=== PATIENT | female | born 1950 | race Caucasian/White ===

== ENCOUNTER 2018-02-03 09:05 | Day surgery (SDC) | payer MEDICARE, OTHER ==
[2018-02-02 11:47] LABS: Basophils # (auto) 0.1 uL; Basophils % (auto) 1.3 % (0.0-2.0); Eosinophils # (auto) 0.2 uL; Eosinophils % (auto) 3.1 % (0.0-7.0); Hematocrit 43.4 % (36.0-46.0); Hemoglobin 14.4 g/dL (12.2-16.2); Lymphocytes # (auto) 2.3 uL; Lymphocytes % (auto) 35.9 % (10.0-50.0); Mean Corpuscular Hemoglobin 28.7 pg (28.0-32.0); Mean Corpuscular Hgb Conc. 33.1 g/dL (32.0-36.0); Mean Corpuscular Volume 86.6 fL (80.0-100.0); Monocytes # (auto) 0.4 uL; Monocytes % (auto) 6.6 % (0.0-12.0); Neutrophils # (auto) 3.4 uL; Neutrophils % (auto) 53.1 % (37.0-80.0); Nucleated Red Blood Cells % 0.1 %; Platelet Count (auto) 253 10^3/uL (140-450); Red Blood Cells 5.01 10^6/uL (4.0-5.20); Red Cell Distribution Width 15.3 % (11.8-14.3); White Blood Cell 6.4 10^3/uL (4.4-10.8)
[2018-02-02 11:54] LABS: Urine Bacteria NONE SEEN /hpf (None Seen); Urine Blood Negative /uL (Negative); Urine WBC 2 /hpf (0 - 5)
[2018-02-02 12:01] LABS: INR 0.96 (0.9-1.15); Partial Thromboplastin Time 20.8 sec (22.64-33.71); Prothrombin Time 10.5 sec (9.37-12.3)
[2018-02-02 12:11] LABS: Albumin 3.8 g/dL (3.4-5.0); BUN/Creatinine Ratio 16.8; Bilirubin, Total 1.1 mg/dL (0.2-1.0); Calcium 8.6 mg/dL (8.5-10.1); Total Protein 8.3 g/dL (6.4-8.2)
[~2018-02-03] VITALS: Ht 170.2 cm; Wt 88.9 kg
[~2018-02-03 09:05] MED LIST: ALPR0.5T PO; ASPI81TA27 PO; ATOR10TA52 PO; BIOT2500 PO; CYCL1TAB18 PO; FERR-20 PO; LETR2.5T PO; LEVO75TA6 PO; LISI2.5T47 PO; MAGN250T8 PO; METF-370 PO; MULTTAB61 PO; THIA100T25 PO; TRAZ50TA2 PO
[2018-02-03] MEDS ORDERED: ceFAZolin 1GM/50ML 0 ML IV ONE (09:24)
[2018-02-03] MEDS ORDERED: LEVOFLOXACIN 500MG 100 ML IV ONE (09:25)
[2018-02-03] MEDS ORDERED: BUPIVACAINE 0.75% INJ 10ML MPV SDV IJ ONE (11:13)
[2018-02-03] MEDS ORDERED: fentaNYL CITRATE 100 MCG/2 ML VL ONE (11:13)
[2018-02-03] MEDS ORDERED: MIDAZOLAM HCL 1MG/1ML-2 ML VIAL ONE (11:13)
[2018-02-03] MEDS ORDERED: PROPOFOL 10 MG/ML 20 ML IV ONE (11:20)
[2018-02-03] MEDS ORDERED: diphenhdrAMINE HCL 50 MG/1 ML VL ONE (11:44)
[2018-02-03] MEDS ORDERED: ONDANSETRON HCL 4 MG/2 ML VIAL IV ONE (11:45)
[2018-02-03] MEDS ORDERED: ePHEDrine SULFATE 50 MG/ML AMP IV PRN (11:45)
[2018-02-03] MEDS ORDERED: hydrALAZINE HCL 20 MG/ML VL IV PRN (11:45)
[2018-02-03] MEDS ORDERED: fentaNYL CITRATE 100 MCG/2 ML VL IV ONE (12:00)
[2018-02-03 12:35] VITALS: BP 167/87
== END 2018-02-03 12:50 | disposition home or self-care (01) ==
LOC: SUR 09:05
PROVIDERS: ATTEND Podiatrist Foot & Ankle Surgery
DX: M62.472 Contracture of muscle, left ankle and foot (principal); Z88.1 Allergy status to other antibiotic agents; Z88.0 Allergy status to penicillin; Z88.2 Allergy status to sulfonamides; E66.9 Obesity, unspecified; Z88.4 Allergy status to anesthetic agent; Z91.041 Radiographic dye allergy status; E11.9 Type 2 diabetes mellitus without complications; Z85.3 Personal history of malignant neoplasm of breast; Z90.12 Acquired absence of left breast and nipple
CPT/HCPCS: 27685; 36415; 80053; 81001; 82962; 85025; 85610; 85730; J1200; J1956; J2250; J2704; J3010; J3490; J0690

== ENCOUNTER 2018-10-06 06:23 | Day surgery (SDC) | payer MEDICARE, OTHER ==
[2018-10-04 16:25] LABS: Basophils # (auto) 0 uL; Eosinophils # (auto) 0.1 uL; Eosinophils % (auto) 2.3 % (0.0-7.0); Hematocrit 45.2 % (36.0-46.0); Hemoglobin 15.3 g/dL (12.2-16.2); Lymphocytes % (auto) 40.3 % (10.0-50.0); Mean Corpuscular Hemoglobin 28.9 pg (28.0-32.0); Mean Corpuscular Hgb Conc. 33.8 g/dL (32.0-36.0); Mean Corpuscular Volume 85.6 fL (80.0-100.0); Monocytes # (auto) 0.3 uL; Monocytes % (auto) 7.1 % (0.0-12.0); Neutrophils # (auto) 2.4 uL; Neutrophils % (auto) 49.3 % (37.0-80.0); Nucleated Red Blood Cells % 0.1 %; Platelet Count (auto) 249 10^3/uL (140-450); Red Blood Cells 5.28 10^6/uL (4.0-5.20); Red Cell Distribution Width 14.5 % (11.8-14.3); White Blood Cell 4.9 10^3/uL (4.4-10.8)
[2018-10-04 16:39] LABS: INR 0.98 (0.9-1.15); Partial Thromboplastin Time 26.2 sec (23.78-33.04); Prothrombin Time 10.5 sec (9.27-12.13); Urine Bacteria NONE SEEN /hpf (None Seen); Urine Blood 1+ /uL (Negative); Urine WBC 129 /hpf (0 - 5)
[2018-10-04 18:13] LABS: Albumin 3.9 g/dL (3.4-5.0); BUN/Creatinine Ratio 18.5; Calcium 10.1 mg/dL (8.5-10.1); Potassium 3.9 mmol/L (3.5-5.1)
[2018-10-04 18:16] LABS: Bilirubin, Total 1.3 mg/dL (0.2-1.0); Total Protein 8.3 g/dL (6.4-8.2)
[~2018-10-06] VITALS: Ht 170.2 cm; Wt 92.5 kg
[~2018-10-06 06:23] MED LIST changes: -TRAZ50TA2 PO
[2018-10-06] MEDS ORDERED: NEOMYCIN-BACITRACIN-POLYM 15GM TOP OINT TOP ONE (07:00)
[2018-10-06] MEDS ORDERED: BUPIVACAINE 0.75% INJ 10ML MPV SDV IJ ONE (07:00)
[2018-10-06] MEDS ORDERED: LEVOFLOXACIN 500MG 100 ML IV ONE (07:09)
[2018-10-06] MEDS ORDERED: SODIUM CHLORIDE LOCK 10 ML ONE (07:11)
[2018-10-06] MEDS ORDERED: ONDANSETRON HCL 4 MG/2 ML VIAL ONE (07:11)
[2018-10-06] MEDS ORDERED: ROCURONIUM 10MG/ML 10ML VIAL IV ONE (07:11)
[2018-10-06] MEDS ORDERED: MIDAZOLAM HCL 1MG/1ML-2 ML VIAL ONE (07:11)
[2018-10-06] MEDS ORDERED: PROPOFOL 10 MG/ML 20 ML IV ONE (07:11)
[2018-10-06] MEDS ORDERED: fentaNYL CITRATE 100 MCG/2 ML VL ONE (07:11)
[2018-10-06] MEDS ORDERED: KETOROLAC TROMETH 30 MG/ML 1ML VIAL IV ONE (07:30)
[2018-10-06] MEDS ORDERED: ACCU-CHEK COMFORT CURVE STRIP VI ONE (07:30)
[2018-10-06] MEDS ORDERED: METOCLOPRAMIDE HCL 5MG/ml INJ 2ml VIAL IV ONE (07:30)
[2018-10-06] MEDS: HYDROmorphone HCL 2 MG/ML VL IV PRN ×2 (09:12→09:23)
[2018-10-06 09:44] VITALS: BP 139/69
== END 2018-10-06 10:05 | disposition home or self-care (01) ==
LOC: SUR 06:23
PROVIDERS: ATTEND Podiatrist Foot & Ankle Surgery
DX: M21.622 Bunionette of left foot (principal); M20.5X2 Other deformities of toe(s) (acquired), left foot; M77.8 Other enthesopathies, not elsewhere classified; I10 Essential (primary) hypertension; E66.9 Obesity, unspecified; E07.9 Disorder of thyroid, unspecified; E11.40 Type 2 diabetes mellitus with diabetic neuropathy, unspecified; Z98.890 Other specified postprocedural states; Z88.1 Allergy status to other antibiotic agents; Z91.041 Radiographic dye allergy status; Z85.3 Personal history of malignant neoplasm of breast; Z90.12 Acquired absence of left breast and nipple; Z88.4 Allergy status to anesthetic agent; Z88.0 Allergy status to penicillin; Z88.2 Allergy status to sulfonamides
CPT/HCPCS: 28110; 28285; 36415; 73630; 80053; 81001; 82962; 85025; 85610; 85730; 88304; 88311; C1713; C1769; J1170; J1956; J2250; J2405; J2704; J3010; J3490; L3260

== ENCOUNTER → 2019-12-07 | Day surgery (SDC) | payer MEDICARE, OTHER ==
[2019-12-05 15:24] LABS: Basophils # (auto) 0.1 uL; Basophils % (auto) 1.3 % (0.0-2.0); Eosinophils # (auto) 0.2 uL; Eosinophils % (auto) 3.7 % (0.0-7.0); Hematocrit 46.7 % (36.0-46.0); Hemoglobin 15.7 g/dL (12.2-16.2); Lymphocytes % (auto) 36.7 % (10.0-50.0); Mean Corpuscular Hemoglobin 29.1 pg (28.0-32.0); Mean Corpuscular Hgb Conc. 33.7 g/dL (32.0-36.0); Mean Corpuscular Volume 86.3 fL (80.0-100.0); Monocytes # (auto) 0.3 uL; Monocytes % (auto) 6.4 % (0.0-12.0); Neutrophils # (auto) 2.8 uL; Neutrophils % (auto) 51.9 % (37.0-80.0); Nucleated Red Blood Cells % 0.1 %; Platelet Count (auto) 253 10^3/uL (140-450); Red Blood Cells 5.41 10^6/uL (4.0-5.20); Red Cell Distribution Width 14.9 % (11.8-14.3); White Blood Cell 5.3 10^3/uL (4.4-10.8)
[2019-12-05 15:25] LABS: Urine Bacteria NONE SEEN /hpf (None Seen); Urine Blood Negative /uL (Negative); Urine Specific Gravity 1.021 (1.001-1.035); Urine WBC 1 /hpf (0 - 5)
[2019-12-05 15:45] LABS: INR 1.01 (0.9-1.15); Partial Thromboplastin Time 24.3 sec (23.64-32.05)
[2019-12-05 15:52] LABS: Albumin 3.8 g/dL (3.4-5.0); BUN/Creatinine Ratio 18.8; Calcium 9.2 mg/dL (8.5-10.1); Potassium 4.1 mmol/L (3.5-5.1)
[2019-12-05 16:02] LABS: Bilirubin, Total 0.9 mg/dL (0.2-1.0); Total Protein 8.5 g/dL (6.4-8.2)
[~2019-12-07] VITALS: Ht 170.2 cm; Wt 91.6 kg
[~2019-12-07] MED LIST changes: +ACCU-CHEK COMFORT CURVE STRIP VI ONE; -ALPR0.5T PO; +ASPI-404 PO; -ASPI81TA27 PO; -CYCL1TAB18 PO; +ESMOLOL HCL 10 ML IV ONE; +ETOMIDATE (2MG/ML) 20ML VIAL IV ONE; +HYDROmorphone HCL 2 MG/ML VL IV PRN; +InsuLIN REG 1unit/0.01ml Soln (100units/ml) ONE; +LEVOFLOXACIN 500MG 100 ML IV ONE; +LIDOCAINE 1% (LOCAL ANESTH.) PF 5ml SDV ONE; +METOCLOPRAMIDE HCL 5MG/ml INJ 2ml VIAL ONE; +MIDAZOLAM HCL 1MG/1ML-2 ML VIAL ONE; +NALOXONE HCL 0.4 MG/ML VIAL IV PRN; +NEOMYCIN-BACITRACIN-POLYM 15GM TOP OINT TOP ONE; +ONDANSETRON HCL 4 MG/2 ML VIAL ONE; +PROMETHAZINE HCL 25 MG/ML 1ML IV ONE; +PROMETHAZINE HCL 25 MG/ML 1ML ONE; +ROCURONIUM 10MG/ML 10ML VIAL IV ONE; +ROPIVACAINE 0.5% (5MG/ML) 20ML AMPULE IJ ONE; +SODIUM CHLORIDE LOCK 10 ML ONE; +SUCCINYLCHOLINE CHLORIDE 20 MG/ML 10ML VIAL IV ONE; -THIA100T25 PO; +ePHEDrine SULFATE 50 MG/ML AMP ONE; +fentaNYL CITRATE 100 MCG/2 ML VL ONE; +hydrALAZINE HCL 20 MG/ML VL IV PRN
[2019-12-07] MEDS: ONDANSETRON HCL 4 MG/2 ML VIAL IV PRN ×2 (09:35→10:09)
[2019-12-07 10:39] VITALS: BP 120/70
== END | disposition home or self-care (01) ==
LOC: SUR 06:23
PROVIDERS: ATTEND Podiatrist Foot & Ankle Surgery
DX: T85.848A Pain due to other internal prosthetic devices, implants and grafts, initial encounter (principal); E11.621 Type 2 diabetes mellitus with foot ulcer; L89.893 Pressure ulcer of other site, stage 3; K21.9 Gastro-esophageal reflux disease without esophagitis; I10 Essential (primary) hypertension; M19.90 Unspecified osteoarthritis, unspecified site; E11.9 Type 2 diabetes mellitus without complications; E03.9 Hypothyroidism, unspecified; E66.9 Obesity, unspecified; Z88.0 Allergy status to penicillin; Z88.1 Allergy status to other antibiotic agents; Z88.2 Allergy status to sulfonamides; Z88.8 Allergy status to other drugs, medicaments and biological substances; Z91.040 Latex allergy status; Z85.3 Personal history of malignant neoplasm of breast; Z90.12 Acquired absence of left breast and nipple; Z90.710 Acquired absence of both cervix and uterus; Z79.84 Long term (current) use of oral hypoglycemic drugs; Z79.899 Other long term (current) drug therapy; Z68.32 Body mass index [BMI] 32.0-32.9, adult
CPT/HCPCS: 20680; 28112; 36415; 80053; 81001; 82962; 85025; 85610; 85730; 88300; 88304; 88311; 93005; J0330; J1170; J1815; J1956; J2250; J2405; J2550; J2765; J2795; J3010; L3260

== ENCOUNTER → 2020-03-28 | Day surgery (SDC) | payer MEDICARE, OTHER ==
[2020-03-26 15:47] LABS: Basophils # (auto) 0.1 10 ^3/uL (0-0.2); Basophils % (auto) 1.1 % (0.0-2.0); Eosinophils # (auto) 0.2 10 ^3/uL (0-0.8); Eosinophils % (auto) 2.5 % (0.0-7.0); Hematocrit 46.7 % (36.0-46.0); Hemoglobin 15.5 g/dL (12.2-16.2); Lymphocytes # (auto) 2.3 10 ^3/uL (0.4-5.4); Lymphocytes % (auto) 38.5 % (10.0-50.0); Mean Corpuscular Hemoglobin 28.4 pg (28.0-32.0); Mean Corpuscular Hgb Conc. 33.1 g/dL (32.0-36.0); Mean Corpuscular Volume 85.7 fL (80.0-100.0); Monocytes # (auto) 0.4 10 ^3/uL (0-1.3); Monocytes % (auto) 6.3 % (0.0-12.0); Neutrophils # (auto) 3.1 10 ^3/uL (1.6-8.6); Neutrophils % (auto) 51.6 % (37.0-80.0); Nucleated Red Blood Cells % 0.1 %; Platelet Count (auto) 231 10^3/uL (140-450); Red Blood Cells 5.45 10^6/uL (4.0-5.20); Red Cell Distribution Width 15.3 % (11.8-14.3); White Blood Cell 6.1 10^3/uL (4.4-10.8)
[2020-03-26 16:02] LABS: INR 1.04 (0.9-1.15)
[2020-03-26 16:04] LABS: Albumin 3.8 g/dL (3.4-5.0); Calcium 9.4 mg/dL (8.5-10.1); Potassium 3.8 mmol/L (3.5-5.1)
[2020-03-26 16:07] LABS: Bilirubin, Total 1.2 mg/dL (0.2-1.0); Total Protein 8.2 g/dL (6.4-8.2)
[2020-03-26 16:38] LABS: Urine Bacteria NONE SEEN /hpf (None Seen); Urine Blood Negative /uL (Negative); Urine Mucus FEW (None Seen); Urine Specific Gravity 1.019 (1.001-1.035); Urine WBC 6 /hpf (0 - 5)
[~2020-03-28] VITALS: Ht 170.2 cm; Wt 88.0 kg
[~2020-03-28] MED LIST changes: -ACCU-CHEK COMFORT CURVE STRIP VI ONE; -BIOT2500 PO; +DexAMETHasone SOD PHOS 10MG/1ML VIAL INJ ONE; -ESMOLOL HCL 10 ML IV ONE; -ETOMIDATE (2MG/ML) 20ML VIAL IV ONE; -FERR-20 PO; -InsuLIN REG 1unit/0.01ml Soln (100units/ml) ONE; +LABETALOL HCL 5 MG/ML 4ML SYRINGE IV PRN; -LEVOFLOXACIN 500MG 100 ML IV ONE; -LIDOCAINE 1% (LOCAL ANESTH.) PF 5ml SDV ONE; +MEPERIDINE HCL (50 MG/ML) 1 ML VIAL ONE; -METOCLOPRAMIDE HCL 5MG/ml INJ 2ml VIAL ONE; +MIDAZOLAM HCL 1MG/1ML-2 ML VIAL IV PRN; +MORPHINE SULFATE 4 MG/ML SYR/VIAL IV PRN; -NALOXONE HCL 0.4 MG/ML VIAL IV PRN; +ONDANSETRON HCL 4 MG/2 ML VIAL IV PRN; -ONDANSETRON HCL 4 MG/2 ML VIAL ONE; -PROMETHAZINE HCL 25 MG/ML 1ML IV ONE; -PROMETHAZINE HCL 25 MG/ML 1ML ONE; +PROPOFOL 10 MG/ML 20 ML IV ONE; -ROCURONIUM 10MG/ML 10ML VIAL IV ONE; -SODIUM CHLORIDE LOCK 10 ML ONE; -SUCCINYLCHOLINE CHLORIDE 20 MG/ML 10ML VIAL IV ONE; +ePHEDrine SULFATE 50 MG/ML AMP IV PRN; -ePHEDrine SULFATE 50 MG/ML AMP ONE; -hydrALAZINE HCL 20 MG/ML VL IV PRN; +levoFLOXacin 500MG 100 ML IV ONE
[2020-03-28 10:25] VITALS: BP 142/84
== END | disposition home or self-care (01) ==
LOC: SUR 06:54
PROVIDERS: ATTEND Podiatrist Foot & Ankle Surgery
DX: M20.41 Other hammer toe(s) (acquired), right foot (principal); M25.774 Osteophyte, right foot; M89.9 Disorder of bone, unspecified; E66.01 Morbid (severe) obesity due to excess calories; E07.9 Disorder of thyroid, unspecified; Z88.0 Allergy status to penicillin; Z88.2 Allergy status to sulfonamides; Z88.8 Allergy status to other drugs, medicaments and biological substances; Z79.899 Other long term (current) drug therapy; Z98.890 Other specified postprocedural states; Z85.3 Personal history of malignant neoplasm of breast; Z68.31 Body mass index [BMI] 31.0-31.9, adult; Z91.041 Radiographic dye allergy status; Z11.59 Encounter for screening for other viral diseases
CPT/HCPCS: 28122; 28285; 36415; 80053; 81001; 82962; 85025; 85610; 85730; 88304; 88305; 88311; J1100; J1956; J2175; J2250; J2704; J2795; J3010; U0003

== ENCOUNTER → 2020-08-29 | Day surgery (SDC) | payer MEDICARE, OTHER ==
[2020-08-24 13:34] LABS: Urine Bacteria NONE SEEN /hpf (None Seen); Urine Blood Negative /uL (Negative); Urine Specific Gravity 1.018 (1.001-1.035); Urine WBC 19 /hpf (0 - 5)
[2020-08-24 13:35] LABS: Basophils # (auto) 0.1 10 ^3/uL (0-0.2); Basophils % (auto) 1.2 % (0.0-2.0); Eosinophils # (auto) 0.1 10 ^3/uL (0-0.8); Eosinophils % (auto) 2.4 % (0.0-7.0); Hematocrit 44.4 % (36.0-46.0); Hemoglobin 14.7 g/dL (12.2-16.2); Lymphocytes % (auto) 36.3 % (10.0-50.0); Mean Corpuscular Hemoglobin 28.5 pg (28.0-32.0); Mean Corpuscular Volume 86.3 fL (80.0-100.0); Monocytes # (auto) 0.3 10 ^3/uL (0-1.3); Neutrophils % (auto) 54.1 % (37.0-80.0); Nucleated Red Blood Cells % 0.1 %; Platelet Count (auto) 217 10^3/uL (140-450); Red Blood Cells 5.14 10^6/uL (4.0-5.20); Red Cell Distribution Width 15.1 % (11.8-14.3); White Blood Cell 5.6 10^3/uL (4.4-10.8)
[2020-08-24 13:45] LABS: INR 1.01 (0.9-1.15); Partial Thromboplastin Time 24.6 sec (23.0-31.2)
[2020-08-24 14:02] LABS: Potassium 3.8 mmol/L (3.5-5.1)
[2020-08-24 14:17] LABS: Albumin 3.9 g/dL (3.4-5.0); BUN/Creatinine Ratio 21.6; Bilirubin, Total 1.3 mg/dL (0.2-1.0); Calcium 9.4 mg/dL (8.5-10.1); Total Protein 7.9 g/dL (6.4-8.2)
[~2020-08-29] VITALS: Ht 170.2 cm; Wt 88.0 kg
[~2020-08-29] MED LIST changes: -ASPI-404 PO; +ASPI-543 PO; +CHLORHEXIDINE 4% TOPICAL soln 118ml TOP ONE; +CLINDAMYCIN 600MG IV 50 ML IV ONE; -DexAMETHasone SOD PHOS 10MG/1ML VIAL INJ ONE; +ETOMIDATE (2MG/ML) 20ML VIAL IV ONE; +GLYCOPYRROLATE 0.2 MG/ML 1ML VIAL ONE; -HYDROmorphone HCL 2 MG/ML VL IV PRN; -LABETALOL HCL 5 MG/ML 4ML SYRINGE IV PRN; -MEPERIDINE HCL (50 MG/ML) 1 ML VIAL ONE; +METOCLOPRAMIDE HCL 5MG/ml INJ 2ml VIAL ONE; -MIDAZOLAM HCL 1MG/1ML-2 ML VIAL IV PRN; -MORPHINE SULFATE 4 MG/ML SYR/VIAL IV PRN; +MULT-1018 PO; -MULTTAB61 PO; +NEOSTIGMINE 1 MG/ML INJ (10mg/10ML VIAL) ONE; +ONDANSETRON HCL 4 MG/2 ML VIAL ONE; -PROPOFOL 10 MG/ML 20 ML IV ONE; +SUCCINYLCHOLINE CHLORIDE 20 MG/ML 10ML VIAL IV ONE; -ePHEDrine SULFATE 50 MG/ML AMP IV PRN; -levoFLOXacin 500MG 100 ML IV ONE
[2020-08-29 10:31] VITALS: BP 124/73
== END | disposition home or self-care (01) ==
LOC: SUR 06:19
PROVIDERS: ATTEND Podiatrist Foot & Ankle Surgery
DX: M20.41 Other hammer toe(s) (acquired), right foot (principal); M19.90 Unspecified osteoarthritis, unspecified site; E66.9 Obesity, unspecified; E11.9 Type 2 diabetes mellitus without complications; Z20.828 Contact with and (suspected) exposure to other viral communicable diseases; Z85.3 Personal history of malignant neoplasm of breast; Z90.710 Acquired absence of both cervix and uterus; Z88.0 Allergy status to penicillin; Z79.82 Long term (current) use of aspirin; Z68.30 Body mass index [BMI] 30.0-30.9, adult; Z88.2 Allergy status to sulfonamides; Z88.8 Allergy status to other drugs, medicaments and biological substances; Z79.899 Other long term (current) drug therapy; Z98.890 Other specified postprocedural states; Z88.1 Allergy status to other antibiotic agents; Z91.041 Radiographic dye allergy status; Z90.10 Acquired absence of unspecified breast and nipple; Z53.8 Procedure and treatment not carried out for other reasons
CPT/HCPCS: 28122; 28285; 36415; 70360; 70490; 71250; 80053; 81001; 82962; 85025; 85610; 85730; J0330; J2250; J2405; J2765; J3010; J3490; U0003

== ENCOUNTER 2025-07-10 10:06 | Inpatient (IN) | payer MEDICARE, OTHER ==
[~2025-07-10] VITALS: Ht 167.6 cm; Wt 83.2 kg
[~2025-07-10 10:06] MED LIST changes: -CHLORHEXIDINE 4% TOPICAL soln 118ml TOP ONE; -CLINDAMYCIN 600MG IV 50 ML IV ONE; -ETOMIDATE (2MG/ML) 20ML VIAL IV ONE; -GLYCOPYRROLATE 0.2 MG/ML 1ML VIAL ONE; -METOCLOPRAMIDE HCL 5MG/ml INJ 2ml VIAL ONE; -MIDAZOLAM HCL 1MG/1ML-2 ML VIAL ONE; -NEOMYCIN-BACITRACIN-POLYM 15GM TOP OINT TOP ONE; -NEOSTIGMINE 1 MG/ML INJ (10mg/10ML VIAL) ONE; -ONDANSETRON HCL 4 MG/2 ML VIAL IV PRN; -ONDANSETRON HCL 4 MG/2 ML VIAL ONE; -ROPIVACAINE 0.5% (5MG/ML) 20ML AMPULE IJ ONE; -SUCCINYLCHOLINE CHLORIDE 20 MG/ML 10ML VIAL IV ONE; -fentaNYL CITRATE 100 MCG/2 ML VL ONE
[2025-07-10 10:38] VITALS: PULSE 71; RESP 16; O2SAT 96
--- NOTE | 2025-07-10 10:57 | ED.PDOC ---
General HPI Comments This is a 75 year-old female, with a PMHX of Kidney Stones, who presents to the ED with a chief complaint of RLQ abdominal pain with associated R sided back pain, nausea, decreased appetite, and yellow/brown urine as of 0500 this morning after urinating. Patient reports additional symptoms of chills that began X2 days ago over the weekend. Patient states RLQ abdominal pain is constant, radiating to back, with no associated relieving factors. Patient has no further complaints or other modifying factors at this time. Patient otherwise denies further symptoms of fever, vomiting, dysuria, or hematuria. Chief Complaint: Flank Pain Time Seen by MD: 10:39 Reviewed notes: Nurses Notes, Medications, Allergies Allergies: Coded Allergies: Erythromycin (Verified Allergy, Unknown, 08/24/20) Iodine (Verified Allergy, Unknown, 08/24/20) Lidocaine (Verified Allergy, Unknown, 08/24/20) Loracarbef (Verified Allergy, Unknown, 08/24/20) Penicillins (Verified Allergy, Unknown, 08/24/20) Sulfa Antibiotics (Verified Allergy, Unknown, 08/24/20) Home Meds Reported Medications Magnesium Oxide (Magnesium) 250 Mg Tab, 250 MG PO BID, TAB 02/02/18 Multiple Vitamin (Multivitamins) Tab, 1 TAB PO DAILY, #90 TAB 3 Refills 02/02/18 Aspirin (Aspir-Low) 81 Mg Tab, 81 MG PO DAILY for 30 Days, MG 02/02/18 Lisinopril (Lisinopril) 2.5 Mg Tab, 2.5 MG PO DAILY for 30 Days, MG 02/02/18 Letrozole (Femara) 2.5 Mg Tab, 1 TAB PO DAILY, #30 TAB 11 Refills 02/02/18 Levothyroxine Sodium (Levothyroxine Sodium) 75 Mcg Tab, 1 TAB PO DAILY, #30 TAB 5 Refills 02/02/18 Atorvastatin Calcium (ATORVASTATIN CALCIUM) 10 Mg Tab, 1 TAB PO DAILY, #30 TAB 5 Refills 02/02/18 Metformin Hydrochloride (Metformin Hcl) 500 Mg Tab, 500 MG PO TID for 30 Days, MG 02/02/18 Information Source: Patient Mode of Arrival: Ambulatory Severity: Moderate Timing: Hours Duration: Since onset Prehospital treatment: None Onset: Spontaneous History of: Kidney stone associated signs and symptoms: Abdominal Pain, Back Pain, Other (urine color changes and decreased appetite ) Past Medical History PAST MEDICAL HISTORY: Cancer (Breast), Kidney Stones Past Medical History (Other): DVT Surgical History: Hysterectomy Surgical History (Other): Mastectomy 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 Family History Family History: Reviewed,noncontributory to illness, No family hx of Cancer, No family hx of DM, No family hx of Heart skye, No family hx of HTN, No family hx ofKidney skye, No family hx of Liver skye, No family hx of Lung skye, No family hx of Stroke Social History Smoker: Non-Smoker Alcohol: Denies ETOH Use Drugs: Denies Drug Use Lives In: Home Constitutional: reports: chills, others (decreased appetite ); denies: diaphoresis, fatigue, fever, malaise, sweats, weakness EENTM: denies: blurred vision, double vision, ear bleeding, ear discharge, ear drainage, ear pain, ear ringing, eye pain, eye redness, hearing loss, mouth pain, mouth swelling, nasal discharge, nose bleeding, nose congestion, nose pain, photophobia, tearing, throat pain, throat swelling, voice changes, others Respiratory: denies: cough, hemoptysis, orthopnea, SOB at rest, shortness of breath, SOB with excertion, stridor, wheezing, others Cardiovascular: denies: chest pain, dizzy spells, diaphoresis, Dyspnea on exertion, edema, irregular heart beat, left arm pain, lightheadedness, palpitations, PND, syncope, others Gastrointestinal: reports: abdominal pain (RLQ ); denies: abdomen distended, blood streaked bowels, constipated, diarrhea, dysphagia, difficulty swallowing, hematemesis, melena, nausea, poor appetite, poor fluid intake, rectal bleeding, rectal pain, vomiting, others Genitourinary: reports: others (Urine color changes ); denies: abnormal vagina bleeding, burning, dyspareunia, dysuria, flank pain, frequency, hematuria, incontinence, pain, , vagina discharge, urgency Neurological: denies: dizziness, fainting, headache, left sided numbness, left sided weakness, numbness, paresthesia, pre-existing deficit, right sided numbness, right sided weakness, seizure, speech problems, tingling, tremors, weakness, others Musculoskeletal: reports: back pain; denies: gout, joint pain, joint swelling, muscle pain, muscle stiffness, neck pain, others Integumetry: denies: bruises, change in color, change in hair/nails, dryness, laceration, lesions, lumps, rash, wounds, others Allergic/Immunocompromised: denies: Difficulty Healing, Frequent Infections, Hives, Itching, others Hematologic/Lymphatic: denies: anemia, blood clots, easy bleeding, easy bruising, swollen glands, others Endocrine: denies: excessive hunger, excessive sweating, excessive thirst, excessive urination, flushing, intolerance to cold, intolerance to heat, unexplained weight gain, unexplained weight loss, others Psychiatric: denies: anxiety, bipolar disorder, depression, hopeless, panic disorder, schizophrenia, sleepless, suicidal, others All Other Systems: Reviewed and Negative Physical Exam General Appearance: Moderate Distress HEENT: Other (Pupils and face symmetric. Moist mucous membranes.) Neck: Full Range of Motion, Normal Inspection Respiratory: Lungs Clear, No Accessory Muscle Use, No Respiratory Distress, Normal Breath Sounds Cardiovascular: No Edema, No JVD, Regular Rate/Rhythm Breast Exam: Deferred Gastrointestinal: RLQ, Soft, Tenderness Genitalia: Deferred Pelvic: Deferred Rectal: Deferred Extremities: Normal inspection, Normal range of motion, Non-tender, No pedal edema Neurologic: Alert (Oriented x4), Normal Affect, Normal Mood, Other (Ambulatory) Cerebellar Function: NOT DONE Reflexes: NOT DONE Skin: Dry, Normal Color, Warm Lymphatic: NOT DONE Was a procedure done? Was a procedure done?: No Differential Diagnosis Kidney stone (Female): Aortic dissection, Appendicitis, Musculoskeletal pain, Ovarian torsion, Renal failure, Urinary obstruction Kidney stone (Male): N/A Penile/Scrotal: N/A Urinary Problem (Male): N/A Urinary Problem (Female): Pyelonephritis, UTI, Vaginitis X-Ray, Labs, Meds, VS Vital Signs Date Time Temp Pulse Resp B/P (MAP) Pulse Ox O2 Delivery O2 Flow Rate FiO2 07/10/25 11:57 66 16 138/62 07/10/25 11:29 97.7 64 16 136/61 (86) 99 97.7 07/10/25 11:26 64 16 136/61 07/10/25 10:38 71 16 96 Room Air* 0 21 07/10/25 10:09 97.7 71 16 131/60 (83) 96 97.7 07/10/25 10:09 97.7 71 16 131/60 96 97.7 Lab Test 07/10/25 10:47 07/10/25 10:33 Range/Units White Blood Count 9.5 4.4-10.8 10^3/uL Red Blood Count 5.17 4.0-5.20 10^6/uL Hemoglobin 14.9 12.2-16.2 g/dL Hematocrit 44.5 36.0-46.0 % Mean Corpuscular Volume 86.2 80.0-100.0 fL Mean Corpuscular Hemoglobin 28.9 28.0-32.0 pg Mean Corpuscular Hemoglobin Concent 33.5 32.0-36.0 g/dL Red Cell Distribution Width 14.9 H 11.8-14.3 % Platelet Count 320 140-450 10^3/uL Mean Platelet Volume 7.2 6.9-10.8 fL Neutrophils (%) (Auto) 78.4 37.0-80.0 % Lymphocytes (%) (Auto) 13.0 10.0-50.0 % Monocytes (%) (Auto) 7.7 0.0-12.0 % Eosinophils (%) (Auto) 0.4 0.0-7.0 % Basophils (%) (Auto) 0.5 0.0-2.0 % Neutrophils # (Auto) 7.4 1.6-8.6 10 ^3/uL Lymphocytes # (Auto) 1.2 0.4-5.4 10 ^3/uL Monocytes # (Auto) 0.7 0-1.3 10 ^3/uL Eosinophils # (Auto) 0 0-0.8 10 ^3/uL Basophils # (Auto) 0 0-0.2 10 ^3/uL Nucleated Red Blood Cells 0.1 % Sodium Level 135 L 136-145 mmol/L Potassium Level 3.9 3.5-5.1 mmol/L Chloride Level 100 98-107 mmol/L Carbon Dioxide Level 23 20-31 mmol/L Anion Gap 12 5-15 Blood Urea Nitrogen 26 H 9-23 mg/dL Creatinine 1.38 H 0.550-1.02 mg/dL Glomerular Filtration Rate Calc 40 >90 mL/min BUN/Creatinine Ratio 18.8 10.0-20.0 Serum Glucose 244 H 74-106 mg/dL Lactic Acid Level 1.0 0.4-2.0 mmol/L Calcium Level 10.2 8.7-10.4 mg/dL Urine Color Light-orange Yellow Urine Clarity Ex.turbid Clear Urine pH 5.5 5.0-9.0 Urine Specific [place] 1.017 1.001-1.035 Urine Protein 1+ H Negative Urine Ketones Negative Negative Urine Blood 3+ H Negative /uL Urine Nitrite Negative Negative Urine Bilirubin Negative Negative Urine Urobilinogen Normal Negative mg/dL Urine Leukocyte Esterase 3+ Negative /uL Urine RBC 394 0 - 4 /hpf Urine WBC Clumps Present None Seen /hpf Urine Microscopic WBC 3778 H 0-5 /HPF Urine Squamous Epithelial Cells Few <5 /hpf Urine Bacteria Few H None Seen /hpf Urine Mucus Few None Seen Urine Yeast (Budding) Moderate None Seen /hpf Urine Glucose 2+ H Normal mg/dL Current Medications Medications (Trade) Dose Ordered Sig/Bhavna Route Start Time Stop Time Status Last Admin Sodium Chloride 1,000 ml @ 1,000 mls/hr Q1H ONCE IV 07/10/25 10:45 07/10/25 11:44 DC 07/10/25 11:20 Ondansetron HCl (Zofran) 4 mg ONCE ONCE IV 07/10/25 10:45 07/10/25 10:46 DC 07/10/25 11:25 Morphine Sulfate 4 mg ONCE ONCE IV 07/10/25 10:45 07/10/25 10:46 DC 07/10/25 11:26 : 1950LOC: ERRM / BED: / AGE / SEX: 75 / F ADM STATUS: REG ER SERVICE 1037 ORDERING PHYSICIAN: MARCO FAM MD PROCEDURE(s): ABPL - CT AB PEL WO CON-NO ORAL OR IV REASON: RLQ pain radiating to R low back ORDER NUMBER(s): [id number], ACCESSION NUMBER(s): [id number] Indication: RLQ pain radiating to R low back Technique: CT axial images of the abdomen and pelvis are obtained without co ntrast. Coronal and sagittal reformats were obtained. Radiation Dose Information: CTDI volume is 11.39 mGy. Dose-length product is 3.09 mGy*cm Comparison: None FINDINGS: There is limited interpretation of the abdomen and pelvis without administration of intravenous contrast. Lung bases demonstrate no pleural effusion. Adrenal glands, spleen unremarkable in shape. Fatty infiltration pancreas. Liver unremarkable in shape. Cholelithiasis. The right kidney demonstrates moderate right hydroureteronephrosis secondary to a distal right ureteral calculi measuring 6 mm. Left kidney demonstrates no hydronephrosis, nephrolithiasis. Stomach is partially distended. Small bowel loops are normal in caliber. Colonic diverticula. Moderate volume stool in the colon. No secondary signs for appendicitis. Abdominal aortic atherosclerotic disease. Bladder contracted. No free pelvic fluid. No inguinal lymphadenopathy. Right femur intramedullary calvin. [id number] bilateral sacroiliac degenerative joint disease. Moderate to advanced thoracolumbar degenerative disc disease. Thoracolumbar levocurvature. Postsurgical changes of the anterior abdominal wall. IMPRESSION: Limited evaluation without contrast. Moderate right hydroureteronephrosis secondary to distal right ureteral calculus measuring 6 mm Atherosclerotic disease. Cholelithiasis. Colonic diverticular disease. Other findings as described. X-Ray, Labs, Meds, VS Comment 75-year-old female with a history of prediabetes, kidney stones, breast cancer in remission, and prior DVT complaining of right lower quadrant pain radiating to the right low back, associated with chills, nausea, decreased appetite and dark urine Vitals unremarkable Exam remarkable for right lower quadrant tenderness to palpation Rhythm strip independently interpreted by me: Sinus rhythm, rate 71, no ectopy. CT abdomen and pelvis IMPRESSION: Limited evaluation without contrast. Moderate right hydroureteronephrosis secondary to distal right ureteral calculus measuring 6 mm Atherosclerotic disease. Cholelithiasis. Colonic diverticular disease. Other findings as described. CBC, basic metabolic panel, UA and lactate reviewed and remarkable for abnormal UA consistent with UTI, sodium 135, BUN 26, creatinine 1.38, glucose 244 Patient treated with the following in the ED: 1 L 0.9 normal saline IV bolus, morphine 4 mg IV, Zofran 4 mg IV, Levaquin 500 mg IV, fentanyl 25 mcg IV On re-evaluation, patient states pain has not improved after IV morphine. Vitals were stable. Plan is to admit the patient for IV antibiotics, pain control and Urology evaluation. Images Reviewed?: Images reviewed and evaluated by me Time of 1ST Reevaluation: 11:32 Reevaluation 1ST: Unchanged Patient Education/Counseling: Diagnosis, Treatment, Need For Follow Up Family Education/Counseling: No Family Present Medical Screening: No EMC Exist At This Time SEPSIS Sepsis Screen Date sepsis recognized/suspect: Jul 10, 2025 Time Sepsis recognized/suspect: 1009 Recent Procedure: No On Antibiotic Therapy: No Respiratory Rate >20: No Heart Rate >90: No Temp<36 C (96.8 F) or >38.3 C: No SBP <90 or MAP <65 mmHG: No New Acute Mental Status Change: No Is the patient on CPAP, BIPAP,: No Physician Orders Ct Ab Pel Wo Con-No Oral Or Iv (07/10/25 10:37) Blood Culture (07/10/25 10:37) Levofloxacin 500mg (Levaquin 500mg/ 100m (07/10/25 11:45) Vital Signs Date Time Temp Pulse Resp B/P (MAP) Pulse Ox O2 Delivery O2 Flow Rate FiO2 07/10/25 11:57 66 16 138/62 07/10/25 11:29 97.7 64 16 136/61 (86) 99 97.7 07/10/25 11:26 64 16 136/61 07/10/25 10:38 71 16 96 Room Air* 0 21 07/10/25 10:09 97.7 71 16 131/60 (83) 96 97.7 07/10/25 10:09 97.7 71 16 131/60 96 97.7 Laboratory Tests Test 07/10/25 10:47 Lactic Acid Level 1.0 mmol/L (0.4-2.0) White Blood Count 9.5 10^3/uL (4.4-10.8) Medications Medications Dose Ordered Sig/Bhavna Route Start Time Stop Time Status Last Admin Dose Admin Morphine Sulfate 4 mg ONCE ONCE IV 07/10/25 10:45 07/10/25 10:46 DC 07/10/25 11:26 Ondansetron HCl 4 mg ONCE ONCE IV 07/10/25 10:45 07/10/25 10:46 DC 07/10/25 11:25 Sodium Chloride 1,000 ml @ 1,000 mls/hr Q1H ONCE IV 07/10/25 10:45 07/10/25 11:44 DC 07/10/25 11:20 Departure 1 Departure Time of Disposition: 11:30 Impression: Primary Impression: Hydronephrosis concurrent with and due to calculi of kidney and ureter Additional Impression: UTI (urinary tract infection) Disposition: ADMITTED INPATIENT Admit to: Med Surg Condition: Guarded Critical Care Note Critical Care Time?: No Stability Stability form required: No Heart Score Heart Score: Heart Score Response (Comments) Value History N/A 0 EKG N/A 0 Age N/A 0 Risk Factors N/A 0 Troponin N/A 0 Total 0 I personally scribed for MARCO FAM MD ([facility]) on 07/10/25 at 10:57. Electronically submitted by Autumn Travis ([email or web address]). I personally scribed for MARCO FAM MD ([email or web address]) on 07/10/25 at 11:46. Electronically submitted by Autumn Travis ([email or web address]). MARCO FAM MD Jul 10, 2025 10:57
[2025-07-10] MEDS: SODIUM CHLORIDE 0.9% 1,000 ML IV ONE (11:20)
[2025-07-10] MEDS: ONDANSETRON HCL 4 MG/2 ML VIAL IV ONE (11:25)
[2025-07-10] MEDS: MORPHINE SULFATE 4 MG/ML SYR/VIAL IV ONE (11:26)
[2025-07-10 11:28] LABS: Hematocrit 44.5 % (36.0-46.0); Hemoglobin 14.9 g/dL (12.2-16.2); Mean Corpuscular Hemoglobin 28.9 pg (28.0-32.0); Mean Corpuscular Volume 86.2 fL (80.0-100.0); Nucleated Red Blood Cells % 0.1 %
[2025-07-10 11:29] LABS: Urine Budding Yeast MODERATE /hpf (None Seen); Urine Protein, UAD 1+ (Negative); Urine WBC Clumps PRESENT /hpf (None Seen)
--- NOTE | 2025-07-10 11:34 | DVH ---
Indication: RLQ pain radiating to R low back Technique: CT axial images of the abdomen and pelvis are obtained without contrast. Coronal and sagit lauren reformats were obtained. Radiation Dose Information: CTDI volume is 11.39 mGy. Dose-length product is 3.09 mGy*cm Comparison: None FINDINGS: There is limited interpretation of the abdomen and pelvis without administration of intravenous contr ast. Lung bases demonstrate no pleural effusion. Adrenal glands, spleen unremarkable in shape. Fatty infiltration pancreas. Liver unremarkable in sha pe. Cholelithiasis. The right kidney demonstrates moderate right hydroureteronephrosis secondary to a distal right ureter al calculi measuring 6 mm. Left kidney demonstrates no hydronephrosis, nephrolithiasis. Stomach is partially distended. Small bowel loops are normal in caliber. Colonic diverticula. Moderate volume stool in the colon. No secondary signs for appendicitis. Abdominal aortic atherosclerotic disease. Bladder contracted. No free pelvic fluid. No inguinal lymp hadenopathy. Right femur intramedullary calvin. [id number] bilateral sacroiliac degenerative joint disease. Mo derate to advanced thoracolumbar degenerative disc disease. Thoracolumbar levocurvature. Postsurgical changes of the anterior abdominal wall. IMPRESSION: Limited evaluation without contrast. Moderate right hydroureteronephrosis secondary to distal right ureteral calculus measuring 6 mm Atherosclerotic disease. Cholelithiasis. Colonic diverticular disease. Other findings as described.
[2025-07-10 11:37] LABS: Chloride 100 mmol/L (98-107); Potassium 3.9 mmol/L (3.5-5.1)
[2025-07-10 11:38] LABS: Anion Gap 12 (5-15); Calcium 10.2 mg/dL (8.7-10.4); Carbon Dioxide 23 mmol/L (20-31)
[2025-07-10 11:41] LABS: Sodium 135 mmol/L (136-145)
[2025-07-10 11:43] LABS: BUN/Creatinine Ratio 18.8 (10.0-20.0)
[2025-07-10] MEDS: fentaNYL CITRATE 100 MCG/2 ML VL IV ONE (11:45)
[2025-07-10 11:58] LABS: Blood Urea Nitrogen 26 mg/dL (9-23); Glucose 244 mg/dL (74-106)
--- NOTE | 2025-07-10 13:06 | DVHHP2 ---
Admitting Diagnosis: Abdominal pain/ back pain History of Present Illness 75 year old female is complaining of right lower quadrant pain. Patient reports it radiates to her back and is having nausea with yellow/brown urine that she noticed this morning. Patient states she is also having decreased appetite and chills. While in the emergency department the patient was evaluated by the provider. Patient will be admitted for further evaluation and treatment. I discussed admission with the patient/family and is in agreement to treatment plan. Allergies: Coded Allergies: Erythromycin (Verified Allergy, Unknown, 08/24/20) Iodine (Verified Allergy, Unknown, 08/24/20) Lidocaine (Verified Allergy, Unknown, 08/24/20) Loracarbef (Verified Allergy, Unknown, 08/24/20) Penicillins (Verified Allergy, Unknown, 08/24/20) Sulfa Antibiotics (Verified Allergy, Unknown, 08/24/20) Home Meds Reported Medications Magnesium Oxide (Magnesium) 250 Mg Tab, 250 MG PO BID, TAB 02/02/18 Multiple Vitamin (Multivitamins) Tab, 1 TAB PO DAILY, #90 TAB 3 Refills 02/02/18 Aspirin (Aspir-Low) 81 Mg Tab, 81 MG PO DAILY for 30 Days, MG 02/02/18 Lisinopril (Lisinopril) 2.5 Mg Tab, 2.5 MG PO DAILY for 30 Days, MG 02/02/18 Letrozole (Femara) 2.5 Mg Tab, 1 TAB PO DAILY, #30 TAB 11 Refills 02/02/18 Levothyroxine Sodium (Levothyroxine Sodium) 75 Mcg Tab, 1 TAB PO DAILY, #30 TAB 5 Refills 02/02/18 Atorvastatin Calcium (ATORVASTATIN CALCIUM) 10 Mg Tab, 1 TAB PO DAILY, #30 TAB 5 Refills 02/02/18 Metformin Hydrochloride (Metformin Hcl) 500 Mg Tab, 500 MG PO TID for 30 Days, MG 02/02/18 Current Medications Current Medications Medications (Trade) Dose Ordered Sig/Bhavna Route PRN Reason Start Time Stop Time Status Last Admin Insulin Human Regular (InsuLIN R) HS SC 07/10/25 22:00 Multivitamins (Mvi Tab) 1 tab DAILY PO 07/11/25 10:00 07/11/25 10:33 Patient Own Medication 1 tab DAILY PO 07/11/25 10:00 UNV Patient Own Medication 1 tab DAILY PO 07/11/25 10:00 UNV Patient Own Medication 2.5 mg DAILY PO 07/11/25 10:00 07/10/25 13:40 DC Patient Own Medication 250 mg BID PO 07/10/25 22:00 Levofloxacin 50 ml @ 50 mls/hr DAILY IV 07/11/25 10:00 07/11/25 11:31 Atorvastatin Calcium (Lipitor) 10 mg HS PO 07/10/25 22:00 07/10/25 22:14 Lisinopril (Zestril Tablet) 2.5 mg DAILY PO 07/11/25 10:00 07/11/25 07:38 DC Levothyroxine Sodium (Synthroid Tablet) 75 mcg QAM@0600 PO 07/11/25 06:00 07/11/25 06:25 Tamsulosin HCl (Flomax) 0.4 mg DAILY PO 07/11/25 10:00 07/11/25 10:34 Review of Systems Constitutional: denies chills, denies fever, denies malaise Eyes: denies eye pain, denies vision change ENT: denies ear pain, denies headache, denies nasal congestion, denies painful swallowing, denies voice change Cardiovascular: denies chest pain, denies edema, denies orthopnea, denies palpitations, denies paroxysmal nocturnal dyspnea Respiratory: denies cough, denies shortness of breath Gastrointestinal: denies constipation, denies diarrhea, denies nausea, denies vomiting Genitourinary: denies dysuria, denies frequent urination, denies urethral discharge Musculoskeletal: denies back pain, denies joint pain, denies muscle pain Skin: denies bruising, denies itching, denies rash Neurological: denies focal weakness, denies headache, denies sensory changes Psychiatric: denies anxiety, denies depression Endocrine: denies polydipsia, denies polyuria Hematologic/Lymphatic: denies easy bleeding, denies easy bruising, denies enlarged lymph nodes Allergic/Immunologic: denies allergy, denies hives Vital Signs Vital Signs Date Time Temp Pulse Resp B/P (MAP) Pulse Ox O2 Delivery O2 Flow Rate FiO2 07/11/25 17:00 98.3 83 20 96/57 (70) 93 98.3 07/11/25 08:00 Room Air* 0 21 Physical Exam General Appearance: alert, no distress HEENT: EOMI, PERRLA, normal external inspect of ears, no icterus, no nasal drainage Neck: no carotid bruit, no jugular venous distention (JVD), no lymphadenopathy Chest: normal thorax Respiratory: clear to auscultation, normal air movement Cardiovascular: regular rate and rhythm, no diastolic murmur, no jugular venous distention (JVD), no rub, no systolic murmur Abdominal: soft, no hepatomegaly, no mass, no splenomegaly, no tenderness Genitourinary: grossly normal external Musculoskeletal: no joint tenderness, no swelling Extremities: normal pulses, no calf tenderness, no clubbing, no cyanosis, no edema Skin: no bruising, no jaundice, no rash Neurological: alert, No focal deficit SEPSIS Sepsis Screen Date sepsis recognized/suspect: Jul 10, 2025 Time Sepsis recognized/suspect: 1009 Recent Procedure: No On Antibiotic Therapy: No Respiratory Rate >20: No Heart Rate >90: No Temp<36 C (96.8 F) or >38.3 C: No SBP <90 or MAP <65 mmHG: No New Acute Mental Status Change: No Is the patient on CPAP, BIPAP,: No Physician Orders Ct Ab Pel Wo Con-No Oral Or Iv (07/10/25 10:37) Blood Culture (07/10/25 10:37) Admit (07/10/25 13:02) Code Status (07/10/25 13:02) 2 Gm Sodium Diet (07/10/25 Lunch) Oxygen Per Hour (07/10/25 13:02) Ondansetron Hcl (Zofran) (07/10/25 13:15) Docusate Sodium Capsule (Colace Capsule) (07/10/25 13:15) Condition: Stable (07/10/25 13:02) Acetaminophen Tablet (Tylenol Tablet) (07/10/25 13:15) Sequential Compression Device (07/10/25 ) Nitroglycerin Sublingual (Ntrostat Subli (07/10/25 13:15) Morphine Sulfate Injection (07/10/25 13:15) Stat Ekg For Chest Pain (07/10/25 13:02) Notify Md Of Changes From Base (07/10/25 13:02) Drill Sharpener Operator For 24 Hours (07/10/25 13:02) Emergency Dysrhythmia Protocol (07/10/25 13:02) Rhythm Strips Once Every Shift (07/10/25 13:02) Oxygen By Nasal Cannula (07/10/25 13:02) Glucose Blood (Accu-Chek Comfort Curve T (07/10/25 17:00) Insulin R (Human) (Insulin R) (07/10/25 22:00) Insulin R (Human) (Insulin R) (07/10/25 17:00) Dextrose 50% Syringe (07/10/25 13:15) Sequential Compression Device (07/10/25 13:02) * Urology Consult (07/10/25 13:06) Metformin Hydrochloride (Glucophage) (07/10/25 14:00) Multiple Vitamin Tablet (Mvi Tab) (07/11/25 10:00) (Nf) Magnesium Oxide (Magnesium) (07/10/25 22:00) Urine Bacterial Culture (07/10/25 13:09) Levofloxacin 250mg (Levaquin 250mg) (07/11/25 10:00) Atorvastatin (Lipitor) (07/10/25 22:00) Levothyroxine Tablet (Synthroid Tablet) (07/11/25 06:00) Tamsulosin Hydrochloride (Flomax) (07/11/25 10:00) Tramadol Hcl (Ultram) (07/10/25 15:45) Hydromorphone Injection (Dilaudid Inject (07/10/25 15:45) Sodium Chloride 0.9% (07/10/25 16:45) * Infectious [facility]- Dr. Huntre Patterson (07/11/25 07:35) * Radiologist Consult (07/11/25 10:50) Kidney (07/11/25 13:22) Vital Signs Date Time Temp Pulse Resp B/P (MAP) Pulse Ox O2 Delivery O2 Flow Rate FiO2 07/11/25 17:00 98.3 83 20 96/57 (70) 93 98.3 07/11/25 12:35 97.9 82 17 104/69 (81) 97 97.9 07/11/25 09:00 98.2 87 16 91/48 (62) 94 98.2 07/11/25 08:00 86 07/11/25 08:00 82 18 98 Room Air* 0 21 07/11/25 05:00 98.2 97 18 110/60 (77) 99 98.2 07/11/25 02:07 97 17 110/60 07/11/25 01:37 82 18 108/53 07/11/25 01:00 98.4 82 18 108/53 (71) 95 98.4 07/10/25 21:40 82 18 108/53 07/10/25 21:10 89 18 118/60 07/10/25 21:00 98.6 89 18 118/60 (79) 97 98.6 07/10/25 20:00 89 18 97 Room Air* 0 21 07/10/25 20:00 76 07/10/25 18:47 90 18 95 Room Air* 0 21 07/10/25 17:00 98.4 97 18 105/54 (71) 95 98.4 07/10/25 14:55 97.8 76 18 123/73 (90) 95 97.8 07/10/25 11:57 66 16 138/62 07/10/25 11:29 97.7 64 16 136/61 (86) 99 97.7 07/10/25 11:26 64 16 136/61 07/10/25 10:38 71 16 96 Room Air* 0 21 07/10/25 10:09 97.7 71 16 131/60 (83) 96 97.7 07/10/25 10:09 97.7 71 16 131/60 96 97.7 Laboratory Tests Test 07/10/25 10:47 07/11/25 06:15 Lactic Acid Level 1.0 mmol/L (0.4-2.0) White Blood Count 9.5 10^3/uL (4.4-10.8) 12.4 10^3/uL (4.4-10.8) #H Medications Medications Dose Ordered Sig/Bhavna Route Start Time Stop Time Status Last Admin Dose Admin Levofloxacin 50 ml @ 50 mls/hr DAILY IV 07/11/25 10:00 07/11/25 11:31 Multivitamins 1 tab DAILY PO 07/11/25 10:00 07/11/25 10:33 Tamsulosin HCl 0.4 mg DAILY PO 07/11/25 10:00 07/11/25 10:34 Results Labs Test 07/11/25 18:01 07/11/25 12:00 07/11/25 06:15 07/10/25 10:47 Range/Units POC Glucose 186 H 70-106 mg/dl Prothrombin Time 12.2 H 9.3-11.8 sec Prothrombin Time INR 1.17 H 0.9-1.15 White Blood Count 12.4 #H 4.4-10.8 10^3/uL Red Blood Count 4.61 4.0-5.20 10^6/uL Hemoglobin 13.1 12.2-16.2 g/dL Hematocrit 39.4 # 36.0-46.0 % Mean Corpuscular Volume 85.5 80.0-100.0 fL Mean Corpuscular Hemoglobin 28.5 28.0-32.0 pg Mean Corpuscular Hemoglobin Concent 33.3 32.0-36.0 g/dL Red Cell Distribution Width 15.0 H 11.8-14.3 % Platelet Count 273 140-450 10^3/uL Mean Platelet Volume 7.3 6.9-10.8 fL Neutrophils (%) (Auto) 84.3 H 37.0-80.0 % Lymphocytes (%) (Auto) 7.3 L 10.0-50.0 % Monocytes (%) (Auto) 7.5 0.0-12.0 % Eosinophils (%) (Auto) 0.5 0.0-7.0 % Basophils (%) (Auto) 0.4 0.0-2.0 % Neutrophils # (Auto) 10.5 H 1.6-8.6 10 ^3/uL Lymphocytes # (Auto) 0.9 0.4-5.4 10 ^3/uL Monocytes # (Auto) 0.9 0-1.3 10 ^3/uL Eosinophils # (Auto) 0.1 0-0.8 10 ^3/uL Basophils # (Auto) 0 0-0.2 10 ^3/uL Nucleated Red Blood Cells 0.0 % Sodium Level 134 L 136-145 mmol/L Potassium Level 4.3 3.5-5.1 mmol/L Chloride Level 104 98-107 mmol/L Carbon Dioxide Level 20 20-31 mmol/L Anion Gap 10 5-15 Blood Urea Nitrogen 22 9-23 mg/dL Creatinine 1.33 H 0.550-1.02 mg/dL Glomerular Filtration Rate Calc 41 >90 mL/min BUN/Creatinine Ratio 16.5 10.0-20.0 Serum Glucose 202 H 74-106 mg/dL Calcium Level 8.6 L 8.7-10.4 mg/dL Total Bilirubin 2.1 H 0.2-1.0 mg/dL Aspartate Amino Transferase (AST) 14 13-40 U/L Alanine Aminotransferase (ALT) 11 7-40 U/L Alkaline Phosphatase 74 46-116 U/L Total Protein 6.6 5.7-8.2 g/dL Albumin 3.7 3.2-4.8 g/dL Lactic Acid Level 1.0 0.4-2.0 mmol/L Test 07/10/25 10:33 Range/Units Urine Color Light-orange Yellow Urine Clarity Ex.turbid Clear Urine pH 5.5 5.0-9.0 Urine Specific [place] 1.017 1.001-1.035 Urine Protein 1+ H Negative Urine Ketones Negative Negative Urine Blood 3+ H Negative /uL Urine Nitrite Negative Negative Urine Bilirubin Negative Negative Urine Urobilinogen Normal Negative mg/dL Urine Leukocyte Esterase 3+ Negative /uL Urine RBC 394 0 - 4 /hpf Urine WBC Clumps Present None Seen /hpf Urine Microscopic WBC 3778 H 0-5 /HPF Urine Squamous Epithelial Cells Few <5 /hpf Urine Bacteria Few H None Seen /hpf Urine Mucus Few None Seen Urine Yeast (Budding) Moderate None Seen /hpf Urine Glucose 2+ H Normal mg/dL Microbiology Date/Time Source Procedure Growth Status 07/10/25 11:00 Blood Blood Culture - Preliminary Resulted 07/10/25 10:33 Voided Urine Urine Culture - Preliminary Resulted Plan 1. Right hydroureteronephrosis Monitor, urology consult 2. Right ureteral caliculi Monitor, urology consult, pain meds 3. DM II hyperglycemia Monitor, IV fluids, 4. Acute cystitis with hematuria Monitor, urology consult, IV abx 5. Hypothyroid Monitor, PPI 6. HLD Monitor, PPI Plan discussed with: Patient, Other CHANDRA ALFRED NP Jul 10, 2025 13:06
[2025-07-10] MEDS ORDERED: DOCUSATE SOD 100 MG CAP PO PRN (13:15)
[2025-07-10] MEDS ORDERED: MORPHINE SULFATE INJ 2 MG/ml SYRG IV PRN ×2 (13:15)
[2025-07-10] MEDS ORDERED: DEXTROSE (50%) 50ML SYRG IV PRN (13:15)
[2025-07-10] MEDS ORDERED: ACETAMINOPHEN 325 MG TAB PO PRN (13:15)
[2025-07-10] MEDS ORDERED: NITROGLYCERIN 0.4 MG SL TAB SL PRN (13:15)
[2025-07-10 14:55] VITALS: BP 123/73; PULSE 76; RESP 18; TEMP 97.8; O2SAT 95
[2025-07-10] MEDS: HYDROcodone-ACET 5/325MG TAB PO PRN (15:30)
[2025-07-10 17:00] VITALS: BP 105/54; PULSE 97; RESP 18; TEMP 98.4; O2SAT 95
[2025-07-10] MEDS: InsuLIN REG 1unit/0.01ml Soln (100units/ml) SC SCH ×2 (17:00→22:00)
[2025-07-10] MEDS: ACCU-CHEK COMFORT CURVE STRIP VI SCH (17:24)
[2025-07-10] MEDS: SODIUM CHLORIDE 0.9% 1,000 ML IV SCH (18:25)
[2025-07-10 18:47] VITALS: PULSE 90; RESP 18; O2SAT 95
[2025-07-10 20:00] VITALS: PULSE 76; PULSE 89; RESP 18; O2SAT 97
[2025-07-10 21:00] VITALS: BP 118/60; PULSE 89; RESP 18; TEMP 98.6; O2SAT 97
[2025-07-10] MEDS: ONDANSETRON HCL 4 MG/2 ML VIAL IV PRN (21:04)
[2025-07-10] MEDS: HYDROmorphone HCL 2 MG/ML VL/or syr IV PRN (21:10)
[2025-07-10] MEDS: ATORVASTATIN 20 MG TAB PO SCH (22:14)
[2025-07-11] VITALS (8 sets, daily range): BP systolic 91–110; BP diastolic 48–69; PULSE 82–97; RESP 16–20; TEMP 97.9–98.8; O2SAT 93–99
[2025-07-11] MEDS: LEVOTHYROXINE SODIUM 25 MCG TAB PO SCH (06:25)
[2025-07-11 06:49] LABS: Hematocrit 39.4 % (36.0-46.0); Hemoglobin 13.1 g/dL (12.2-16.2); Mean Corpuscular Hemoglobin 28.5 pg (28.0-32.0); Mean Corpuscular Volume 85.5 fL (80.0-100.0); Nucleated Red Blood Cells % 0.0 %
[2025-07-11 07:09] LABS: Alanine Aminotransferase 11 U/L (7-40); Albumin 3.7 g/dL (3.2-4.8); Alkaline Phosphatase 74 U/L (46-116); Anion Gap 10 (5-15); BUN/Creatinine Ratio 16.5 (10.0-20.0); Blood Urea Nitrogen 22 mg/dL (9-23); Chloride 104 mmol/L (98-107); Potassium 4.3 mmol/L (3.5-5.1); Total Protein 6.6 g/dL (5.7-8.2)
[2025-07-11 07:11] LABS: Bilirubin, Total 2.1 mg/dL (0.2-1.0); Calcium 8.6 mg/dL (8.7-10.4); Carbon Dioxide 20 mmol/L (20-31); Glucose 202 mg/dL (74-106); Sodium 134 mmol/L (136-145)
--- NOTE | 2025-07-11 07:38 | DVHPN2 ---
Progress Note - Dictate Date Seen: Jul 11, 2025 Medical Necessity Reason Pt with a Central, PICC or Fol: No vital signs Vital Sign Date Time Temp Pulse Resp B/P (MAP) Pulse Ox O2 Delivery O2 Flow Rate FiO2 07/11/25 05:00 98.2 97 18 110/60 (77) 99 98.2 07/10/25 20:00 Room Air* 0 21 Total Intake and Output 07/10/25 07/10/25 07/11/25 15:00 23:00 07:00 Intake Total 425 ml 400 ml Balance 425 ml 400 ml medications Current Medications Medications Dose Ordered Sig/Bhavna Route Start Time Stop Time Status Last Admin Dose Admin Ondansetron HCl 4 mg Q4HP PRN IV 07/10/25 13:15 07/10/25 21:04 4 MG Docusate Sodium 100 mg BIDPRN PRN PO 07/10/25 13:15 Acetaminophen 650 mg Q6HP PRN PO 07/10/25 13:15 Nitroglycerin 0.4 mg Q5MINP PRN SL 07/10/25 13:15 Morphine Sulfate 2 mg Q30M PRN IV 07/10/25 13:15 Diagnostic Test (Pha) 1 strip ACHS 07/10/25 17:00 07/11/25 06:19 1 STRIP Insulin Human Regular HS SC 07/10/25 22:00 Insulin Human Regular AC SC 07/10/25 17:00 Dextrose 50 ml UD PRN IV 07/10/25 13:15 Metformin HCl 500 mg TID PO 07/10/25 14:00 Multivitamins 1 tab DAILY PO 07/11/25 10:00 Patient Own Medication 1 tab DAILY PO 07/11/25 10:00 UNV Patient Own Medication 1 tab DAILY PO 07/11/25 10:00 UNV Patient Own Medication 250 mg BID PO 07/10/25 22:00 Levofloxacin/ Dextrose 100 ml @ 100 mls/hr DAILY IV 07/10/25 13:15 UNV Levofloxacin 50 ml @ 50 mls/hr DAILY IV 07/11/25 10:00 Atorvastatin Calcium 10 mg HS PO 07/10/25 22:00 07/10/25 22:14 10 MG Lisinopril 2.5 mg DAILY PO 07/11/25 10:00 Levothyroxine Sodium 75 mcg QAM@0600 PO 07/11/25 06:00 07/11/25 06:25 75 MCG Tamsulosin HCl 0.4 mg DAILY PO 07/11/25 10:00 Tramadol HCl 100 mg Q6HP PRN PO 07/10/25 15:45 Hydromorphone HCl 1 mg Q4HP PRN IV 07/10/25 15:45 07/11/25 01:37 1 MG Sodium Chloride 1,000 ml @ 125 mls/hr Q8H IV 07/10/25 16:45 07/11/25 02:25 125 MLS/HR objective General Appearance: alert, no distress HEENT: EOMI, PERRLA, normal external inspect of ears, no icterus, no nasal drainage Neck: no carotid bruit, no jugular venous distention (JVD), no lymphadenopathy Chest: normal thorax Respiratory: clear to auscultation, normal air movement Cardiovascular: regular rate and rhythm, no diastolic murmur, no jugular venous distention (JVD), no rub, no systolic murmur Abdominal: soft, no hepatomegaly, no mass, no splenomegaly, no tenderness Musculoskeletal: no joint tenderness, no swelling Extremities: normal pulses, no calf tenderness, no clubbing, no cyanosis, no edema Skin: no bruising, no jaundice, no rash Neurological: alert, No focal deficit laboratory and microbiology Laboratory Tests 07/11/25 06:15 Test 07/11/25 06:15 Range/Units Serum Glucose 202 H 74-106 mg/dL Problem List -Right hydro urethral nephrosis Urology consult, IV fluids, Flomax -Right ureteral calculi Urology consult, IV fluids, Flomax - DM type 2 with hyperglycemia Diet, medications, monitoring - Acute cystitis with hematuria Urology consult, IV fluids, Flomax -Hypothyroid monitoring -Hyperlipidemia monitoring -Bacteremia ID consult, IV antibiotics. Assessment/Plan Subjective Patient is awake and alert. Objective Patient was admitted for abdominal pain related to hydronephrosis from right ureteral lithiasis. Patient was seen by urology. IR has been consulted for possible right nephrostomy tube placement. Patient blood culture were positive for gram-negative rods. Patient remains on IV Levaquin. Plan Continue current treatment. Monitor for final urine culture report. IR consult pending. Continue pain medications. IV fluids and Flomax. Plan discussed with: Patient, Other CHANDRA ALFRED NP Jul 11, 2025 07:38
[2025-07-11] MEDS ORDERED: PATIENTS OWN MEDICATION (Levothyroxine Sodium 1 TAB) PO SCH (10:00)
[2025-07-11] MEDS ORDERED: PATIENTS OWN MEDICATION (Lisinopril 2.5 MG) PO SCH (10:00)
[2025-07-11] MEDS ORDERED: LISINOPRIL 5 MG TAB PO SCH (10:00)
[2025-07-11] MEDS ORDERED: PATIENTS OWN MEDICATION (Atorvastatin Calcium 1 TAB) PO SCH (10:00)
[2025-07-11] MEDS: MULTIPLE VITAMIN TAB PO SCH (10:33)
[2025-07-11] MEDS: TAMSULOSIN HYDROCHLORIDE 0.4 MG CAP PO SCH (10:34)
--- NOTE | 2025-07-11 10:50 | DVHINCON2 ---
Date of service: Jul 11, 2025 Referring Physician hospitalist Reason for Consultation ureteral stone History of Present Illness History Source: Patient, RN Notes, MD Notes Exam Limitations: No limitations HPI 75 yo female with hx of kidney stones presents with 3 day hx of abdominal pain with nausea and vomiting and chills. CT showed a 5 mm right distal stone with moderate hydronephrosis. Pain is currently controlled. blood cultures are positive for GNRs. Home Meds Reported Medications Magnesium Oxide (Magnesium) 250 Mg Tab, 250 MG PO BID, TAB 02/02/18 Multiple Vitamin (Multivitamins) Tab, 1 TAB PO DAILY, #90 TAB 3 Refills 02/02/18 Aspirin (Aspir-Low) 81 Mg Tab, 81 MG PO DAILY for 30 Days, MG 02/02/18 Lisinopril (Lisinopril) 2.5 Mg Tab, 2.5 MG PO DAILY for 30 Days, MG 02/02/18 Letrozole (Femara) 2.5 Mg Tab, 1 TAB PO DAILY, #30 TAB 11 Refills 02/02/18 Levothyroxine Sodium (Levothyroxine Sodium) 75 Mcg Tab, 1 TAB PO DAILY, #30 TAB 5 Refills 02/02/18 Atorvastatin Calcium (ATORVASTATIN CALCIUM) 10 Mg Tab, 1 TAB PO DAILY, #30 TAB 5 Refills 02/02/18 Metformin Hydrochloride (Metformin Hcl) 500 Mg Tab, 500 MG PO TID for 30 Days, MG 02/02/18 Review of Systems Constitutional: Chills Gastrointestinal: Nausea, Vomiting, Abdominal Pain Genitourinary: Pain H&P Exam Vital Signs Vital Signs Date Time Temp Pulse Resp B/P (MAP) Pulse Ox O2 Delivery O2 Flow Rate FiO2 07/11/25 09:00 98.2 87 16 91/48 (62) 94 98.2 07/10/25 20:00 Room Air* 0 21 General Appeara: Well developed, Well nourished, Normal Appearance Pulmonary/Respiratory: Normal inspection, Normal breath sounds, Chest non- tender, Lungs clear Cardiovascular/Chest: Normal inspection, Regular rate, Normal Rhythm Neuro/Mental St: Alert, Oriented Appearance: Appropriate appearance, Appropriate insight Eye contact/ Speech: Cooperative, Good eye contact, Normal speech Skin Exam: Normal inspection, Normal color, Warm/dry Labs/Xrays [facility] [id number] [place] [id number] Ph: [phone] DIAGNOSTIC IMAGING Diagnostic Imaging Report : [id number] Signed PATIENT: CORNELIO COLMENARES ACCT: [id number] UNIT: [id number] : 1950 LOC: ER ROOM / BED: / AGE / SEX: 75 / F ADM STATUS: REG ER SERVICE 1037 ORDERING PHYSICIAN: MARCO FAM MD PROCEDURE(s): ABPL - CT AB PEL WO CON-NO ORAL OR IV REASON: RLQ pain radiating to R low back ORDER NUMBER(s): [id number], ACCESSION NUMBER(s): [id number] Indication: RLQ pain radiating to R low back Technique: CT axial images of the abdomen and pelvis are obtained without contrast. Coronal and sagittal reformats were obtained. Radiation Dose Information: CTDI volume is 11.39 mGy. Dose-length product is 3.09 mGy*cm Comparison: None FINDINGS: There is limited interpretation of the abdomen and pelvis without administration of intravenous contrast. Lung bases demonstrate no pleural effusion. Adrenal glands, spleen unremarkable in shape. Fatty infiltration pancreas. Liver unremarkable in shape. Cholelithiasis. The right kidney demonstrates moderate right hydroureteronephrosis secondary to a distal right ureteral calculi measuring 6 mm. Left kidney demonstrates no hydronephrosis, nephrolithiasis. Stomach is partially distended. Small bowel loops are normal in caliber. Colonic diverticula. Moderate volume stool in the colon. No secondary signs for appendicitis. Abdominal aortic atherosclerotic disease. Bladder contracted. No free pelvic fluid. No inguinal lymphadenopathy. Right femur intramedullary calvin. [id number] bilateral sacroiliac degenerative joint disease. Moderate to advanced thoracolumbar degenerative disc disease. Thoracolumbar levocurvature. Postsurgical changes of the anterior abdominal wall. IMPRESSION: Limited evaluation without contrast. Moderate right hydroureteronephrosis secondary to distal right ureteral calculus measuring 6 mm Atherosclerotic disease. Cholelithiasis. Colonic diverticular disease. Other findings as described. ATED BY: EVGENY CHAMBERS MD DICTATED DATE/TIME: 07/10/25 1134 SIGNED BY: EVGENY CHAMBERS MD SIGNED DATE/TIME: 07/10/25 1134 CC: Labs Test 07/11/25 06:15 07/11/25 05:50 07/10/25 10:47 07/10/25 10:33 Range/Units White Blood Count 12.4 #H 4.4-10.8 10^3/uL Red Blood Count 4.61 4.0-5.20 10^6/uL Hemoglobin 13.1 12.2-16.2 g/dL Hematocrit 39.4 # 36.0-46.0 % Mean Corpuscular Volume 85.5 80.0-100.0 fL Mean Corpuscular Hemoglobin 28.5 28.0-32.0 pg Mean Corpuscular Hemoglobin Concent 33.3 32.0-36.0 g/dL Red Cell Distribution Width 15.0 H 11.8-14.3 % Platelet Count 273 140-450 10^3/uL Mean Platelet Volume 7.3 6.9-10.8 fL Neutrophils (%) (Auto) 84.3 H 37.0-80.0 % Lymphocytes (%) (Auto) 7.3 L 10.0-50.0 % Monocytes (%) (Auto) 7.5 0.0-12.0 % Eosinophils (%) (Auto) 0.5 0.0-7.0 % Basophils (%) (Auto) 0.4 0.0-2.0 % Neutrophils # (Auto) 10.5 H 1.6-8.6 10 ^3/uL Lymphocytes # (Auto) 0.9 0.4-5.4 10 ^3/uL Monocytes # (Auto) 0.9 0-1.3 10 ^3/uL Eosinophils # (Auto) 0.1 0-0.8 10 ^3/uL Basophils # (Auto) 0 0-0.2 10 ^3/uL Nucleated Red Blood Cells 0.0 % Sodium Level 134 L 136-145 mmol/L Potassium Level 4.3 3.5-5.1 mmol/L Chloride Level 104 98-107 mmol/L Carbon Dioxide Level 20 20-31 mmol/L Anion Gap 10 5-15 Blood Urea Nitrogen 22 9-23 mg/dL Creatinine 1.33 H 0.550-1.02 mg/dL Glomerular Filtration Rate Calc 41 >90 mL/min BUN/Creatinine Ratio 16.5 10.0-20.0 Serum Glucose 202 H 74-106 mg/dL Calcium Level 8.6 L 8.7-10.4 mg/dL Total Bilirubin 2.1 H 0.2-1.0 mg/dL Aspartate Amino Transferase (AST) 14 13-40 U/L Alanine Aminotransferase (ALT) 11 7-40 U/L Alkaline Phosphatase 74 46-116 U/L Total Protein 6.6 5.7-8.2 g/dL Albumin 3.7 3.2-4.8 g/dL POC Glucose 224 H 70-106 mg/dl Lactic Acid Level 1.0 0.4-2.0 mmol/L Urine Color Light-orange Yellow Urine Clarity Ex.turbid Clear Urine pH 5.5 5.0-9.0 Urine Specific [place] 1.017 1.001-1.035 Urine Protein 1+ H Negative Urine Ketones Negative Negative Urine Blood 3+ H Negative /uL Urine Nitrite Negative Negative Urine Bilirubin Negative Negative Urine Urobilinogen Normal Negative mg/dL Urine Leukocyte Esterase 3+ Negative /uL Urine RBC 394 0 - 4 /hpf Urine WBC Clumps Present None Seen /hpf Urine Microscopic WBC 3778 H 0-5 /HPF Urine Squamous Epithelial Cells Few <5 /hpf Urine Bacteria Few H None Seen /hpf Urine Mucus Few None Seen Urine Yeast (Budding) Moderate None Seen /hpf Urine Glucose 2+ H Normal mg/dL Microbiology Date/Time Source Procedure Growth Status 07/10/25 11:00 Blood Blood Culture - Preliminary Resulted 07/10/25 10:33 Voided Urine Urine Culture - Preliminary Resulted Assessment/Plan Problem List: (1) Bacteremia (2) UTI (urinary tract infection) (3) Hydronephrosis concurrent with and due to calculi of kidney and ureter Plan consult IR for right PCN lithotripsy TBA after resolution of infection Plan discussed with: Patient, Other NANDO LEY NP Jul 11, 2025 10:50
[2025-07-11 12:41] LABS: INR 1.17 (0.9-1.15); Prothrombin Time 12.2 sec (9.3-11.8)
--- NOTE | 2025-07-11 14:41 | DVH ---
INDICATION: EVAL FOR NEPH TUBE TECHNIQUE: Multiple real-time sonographic images of the kidneys and bladder were obtained. COMPARISON: None FINDINGS: The right kidney measures 11 cm in length, which is normal in size. There is normal echogen icity of the right kidney. Small right hydronephrosis. The left kidney measures 10 cm in length, which is normal in size. There is normal echogenicity of th e left kidney. No hydronephrosis. No large intraluminal masses are seen in the bladder. IMPRESSION: 1. Small right hydronephrosis.
[2025-07-12] VITALS (9 sets, daily range): BP systolic 92–114; BP diastolic 51–69; PULSE 68–83; RESP 18–19; TEMP 98.3–98.6; O2SAT 92–97
--- NOTE | 2025-07-12 12:14 | DVHPN2 ---
Progress Note - Dictate Date Seen: Jul 12, 2025 Medical Necessity Reason Pt with a Central, PICC or Fol: No vital signs Vital Sign Date Time Temp Pulse Resp B/P (MAP) Pulse Ox O2 Delivery O2 Flow Rate FiO2 07/12/25 09:00 98.6 75 18 107/66 (80) 92 98.6 07/12/25 07:58 Room Air* 0 21 Total Intake and Output 07/11/25 07/11/25 07/12/25 15:00 23:00 07:00 Intake Total 685 ml 200 ml Balance 685 ml 200 ml medications Current Medications Medications Dose Ordered Sig/Bhavna Route Start Time Stop Time Status Last Admin Dose Admin Ondansetron HCl 4 mg Q4HP PRN IV 07/10/25 13:15 07/10/25 21:04 4 MG Docusate Sodium 100 mg BIDPRN PRN PO 07/10/25 13:15 Acetaminophen 650 mg Q6HP PRN PO 07/10/25 13:15 Nitroglycerin 0.4 mg Q5MINP PRN SL 07/10/25 13:15 Morphine Sulfate 2 mg Q30M PRN IV 07/10/25 13:15 Diagnostic Test (Pha) 1 strip ACHS 07/10/25 17:00 07/12/25 11:55 1 STRIP Insulin Human Regular HS SC 07/10/25 22:00 07/11/25 21:23 3 UNITS Insulin Human Regular AC SC 07/10/25 17:00 07/12/25 11:56 3 UNITS Dextrose 50 ml UD PRN IV 07/10/25 13:15 Metformin HCl 500 mg TID PO 07/10/25 14:00 Multivitamins 1 tab DAILY PO 07/11/25 10:00 07/12/25 09:13 1 TAB Patient Own Medication 1 tab DAILY PO 07/11/25 10:00 UNV Patient Own Medication 1 tab DAILY PO 07/11/25 10:00 UNV Patient Own Medication 250 mg BID PO 07/10/25 22:00 Levofloxacin/ Dextrose 100 ml @ 100 mls/hr DAILY IV 07/10/25 13:15 UNV Levofloxacin 50 ml @ 50 mls/hr DAILY IV 07/11/25 10:00 07/12/25 09:13 50 MLS/HR Atorvastatin Calcium 10 mg HS PO 07/10/25 22:00 07/11/25 21:24 10 MG Levothyroxine Sodium 75 mcg QAM@0600 PO 07/11/25 06:00 07/12/25 06:35 75 MCG Tamsulosin HCl 0.4 mg DAILY PO 07/11/25 10:00 07/12/25 09:13 0.4 MG Tramadol HCl 100 mg Q6HP PRN PO 07/10/25 15:45 07/11/25 18:46 100 MG Hydromorphone HCl 1 mg Q4HP PRN IV 07/10/25 15:45 07/11/25 01:37 1 MG Sodium Chloride 1,000 ml @ 125 mls/hr Q8H IV 07/10/25 16:45 07/12/25 09:13 125 MLS/HR objective General Appearance: alert, no distress HEENT: EOMI, PERRLA, normal external inspect of ears, no icterus, no nasal drainage Neck: no carotid bruit, no jugular venous distention (JVD), no lymphadenopathy Chest: normal thorax Respiratory: clear to auscultation, normal air movement Cardiovascular: regular rate and rhythm, no diastolic murmur, no jugular venous distention (JVD), no rub, no systolic murmur Abdominal: soft, no hepatomegaly, no mass, no splenomegaly, no tenderness Musculoskeletal: no joint tenderness, no swelling Extremities: normal pulses, no calf tenderness, no clubbing, no cyanosis, no edema Skin: no bruising, no jaundice, no rash Neurological: alert, No focal deficit laboratory and microbiology Laboratory Tests 07/11/25 06:15 Test 07/11/25 06:15 Range/Units Serum Glucose 202 H 74-106 mg/dL Problem List -Right hydro urethral nephrosis Urology consult, IV fluids, Flomax -Right ureteral calculi Urology consult, IV fluids, Flomax - DM type 2 with hyperglycemia Diet, medications, monitoring - Acute cystitis with hematuria Urology consult, IV fluids, Flomax -Hypothyroid monitoring -Hyperlipidemia monitoring -Bacteremia ID consult, IV antibiotics. Assessment/Plan Subjective: Patient is awake and alert. Objective: Patient was admitted for abdominal pain and was found to have right hydronephrosis due to right ureteral lithiasis. She was seen by Urology, and a nephrostomy tube was ordered. IR evaluated the patient, and a renal ultrasound showed small right hydronephrosis; no nephrostomy tube was indicated at this time, and they will reevaluate on Thursday. Urine culture showed gram-negative rods. Plan: Continue IV antibiotics. Await final urine culture report. Reevaluate for possible nephrostomy tube on Thursday. Plan discussed with: Patient, Other CHANDRA ALFRED NP Jul 12, 2025 12:14
[2025-07-13] VITALS (8 sets, daily range): BP systolic 113–129; BP diastolic 66–72; PULSE 59–70; RESP 16–19; TEMP 98–98.4; O2SAT 93–100
[2025-07-13 13:03] LABS: Hematocrit 35.4 % (36.0-46.0); Hemoglobin 11.7 g/dL (12.2-16.2); Mean Corpuscular Hemoglobin 28.7 pg (28.0-32.0); Mean Corpuscular Volume 87.0 fL (80.0-100.0); Nucleated Red Blood Cells % 0.2 %
[2025-07-13 13:14] LABS: Potassium 4.1 mmol/L (3.5-5.1); Sodium 140 mmol/L (136-145)
[2025-07-13 13:15] LABS: Anion Gap 8 (5-15); Carbon Dioxide 21 mmol/L (20-31); Chloride 111 mmol/L (98-107)
[2025-07-13 13:20] LABS: BUN/Creatinine Ratio 14.8 (10.0-20.0); Blood Urea Nitrogen 12 mg/dL (9-23)
[2025-07-13 13:23] LABS: Calcium 8.6 mg/dL (8.7-10.4); Glucose 153 mg/dL (74-106)
--- NOTE | 2025-07-13 21:29 | DVHPN2 ---
Progress Note - Dictate Date Seen: Jul 13, 2025 Medical Necessity Reason Pt with a Central, PICC or Fol: No vital signs Vital Sign Date Time Temp Pulse Resp B/P (MAP) Pulse Ox O2 Delivery O2 Flow Rate FiO2 07/13/25 21:00 98.2 59 16 129/72 (91) 98 98.2 07/13/25 08:00 Room Air* 0 21 Total Intake and Output 07/12/25 07/12/25 07/13/25 15:00 23:00 07:00 Intake Total 1050 ml 1500 ml 905 ml Output Total 600 ml Balance 1050 ml 900 ml 905 ml medications Current Medications Medications Dose Ordered Sig/Bhavna Route Start Time Stop Time Status Last Admin Dose Admin Ondansetron HCl 4 mg Q4HP PRN IV 07/10/25 13:15 07/10/25 21:04 4 MG Docusate Sodium 100 mg BIDPRN PRN PO 07/10/25 13:15 Acetaminophen 650 mg Q6HP PRN PO 07/10/25 13:15 Nitroglycerin 0.4 mg Q5MINP PRN SL 07/10/25 13:15 Morphine Sulfate 2 mg Q30M PRN IV 07/10/25 13:15 Diagnostic Test (Pha) 1 strip ACHS 07/10/25 17:00 07/13/25 21:15 1 STRIP Insulin Human Regular HS SC 07/10/25 22:00 07/13/25 21:12 4 UNITS Insulin Human Regular AC SC 07/10/25 17:00 07/13/25 12:01 2 UNITS Dextrose 50 ml UD PRN IV 07/10/25 13:15 Metformin HCl 500 mg TID PO 07/10/25 14:00 Multivitamins 1 tab DAILY PO 07/11/25 10:00 07/13/25 08:49 1 TAB Patient Own Medication 1 tab DAILY PO 07/11/25 10:00 UNV Patient Own Medication 1 tab DAILY PO 07/11/25 10:00 UNV Patient Own Medication 250 mg BID PO 07/10/25 22:00 Levofloxacin/ Dextrose 100 ml @ 100 mls/hr DAILY IV 07/10/25 13:15 UNV Levofloxacin 50 ml @ 50 mls/hr DAILY IV 07/11/25 10:00 07/13/25 08:49 50 MLS/HR Atorvastatin Calcium 10 mg HS PO 07/10/25 22:00 07/13/25 21:10 10 MG Levothyroxine Sodium 75 mcg QAM@0600 PO 07/11/25 06:00 07/13/25 05:58 75 MCG Tamsulosin HCl 0.4 mg DAILY PO 07/11/25 10:00 07/13/25 08:49 0.4 MG Tramadol HCl 100 mg Q6HP PRN PO 07/10/25 15:45 07/11/25 18:46 100 MG Hydromorphone HCl 1 mg Q4HP PRN IV 07/10/25 15:45 07/11/25 01:37 1 MG Sodium Chloride 1,000 ml @ 125 mls/hr Q8H IV 07/10/25 16:45 07/13/25 15:13 125 MLS/HR objective General Appearance: alert, no distress HEENT: EOMI, PERRLA, normal external inspect of ears, no icterus, no nasal drainage Neck: no carotid bruit, no jugular venous distention (JVD), no lymphadenopathy Chest: normal thorax Respiratory: clear to auscultation, normal air movement Cardiovascular: regular rate and rhythm, no diastolic murmur, no jugular venous distention (JVD), no rub, no systolic murmur Abdominal: soft, no hepatomegaly, no mass, no splenomegaly, no tenderness Musculoskeletal: no joint tenderness, no swelling Extremities: normal pulses, no calf tenderness, no clubbing, no cyanosis, no edema Skin: no bruising, no jaundice, no rash Neurological: alert, No focal deficit laboratory and microbiology Laboratory Tests 07/13/25 11:19 Test 07/13/25 11:19 Range/Units Serum Glucose 153 H 74-106 mg/dL Problem List -Right hydro urethral nephrosis Urology consult, IV fluids, Flomax -Right ureteral calculi Urology consult, IV fluids, Flomax - DM type 2 with hyperglycemia Diet, medications, monitoring - Acute cystitis with hematuria Urology consult, IV fluids, Flomax -Hypothyroid monitoring -Hyperlipidemia monitoring -Bacteremia ID consult, IV antibiotics. Assessment/Plan Subjective: Patient is awake and alert. Objective: Repeat blood cultures were ordered for today. Patient will have reevaluation by IR for possible nephrostomy tube. Patient has positive blood cultures and urine cultures. Plan: Continue current treatment. Patient doing well and feels better. Reevaluation of plan of care tomorrow. Plan discussed with: Patient, Other CHANDRA ALFRED NP Jul 13, 2025 21:29
[2025-07-14 01:00] VITALS: BP 133/77; PULSE 65; RESP 16; TEMP 98.1; O2SAT 97
[2025-07-14 05:00] VITALS: BP 124/72; PULSE 64; RESP 16; TEMP 97.7; O2SAT 95
[2025-07-14 08:00] VITALS: PULSE 54; RESP 17; O2SAT 98
[2025-07-14 09:00] VITALS: BP 125/72; PULSE 51; RESP 16; TEMP 97.7; O2SAT 97
--- NOTE | 2025-07-14 09:32 | DVH ---
CT CT AB PEL WO CON-NO ORAL OR IV INDICATION: reeval for possible neph tube EXAM DATE: 07/14/2025 08:09 AM COMPARISON: CT CT AB PEL WO CON-NO ORAL OR IV on DOS: 07/10/25 RADIATION DOSE: CTDIvol: 15.31 mGy, DLP: 678.31 mGy*cm PROCEDURE: Helical CT images were obtained of the abdomen and pelvis without IV contrast Sagittal and coronal reconstructions are provided. ORAL CONTRAST: None. ADDITIONAL IMAGES / REFORMATS: None All C T scans at this medical facility are performed using dose modulation techniques as appropriate to a p erformed exam including the following: Automated exposure control was utilized; adjustment of the MA and/or KV according to patient size; and use of iterative reconstruction technique. FINDINGS: LUNG BASE: Small bilateral pleural effusion. LIVER: Normal. GALLBLADDER AND BILIARY TREE: Gallstones are noted in the gallbladder. No intra- or extrahepatic bili basilia ductal dilation. PANCREAS: Normal. SPLEEN: Normal. BOWEL: Moderate colonic diverticulosis. The appendix is not seen. ADRENALS: Normal. KIDNEYS AND URETER: No significant hydronephrosis seen. BLADDER: Nonobstructive 4mm bladder stone. REPRODUCTIVE ORGANS: Normal. LYMPH NODES:No lymphadenopathy. PERITONEUM: No ascites or free air. No other fluid collection. VESSELS: Scattered atherosclerotic calcifications are noted. RETROPERITONEUM: Normal. ABDOMINAL WALL: Abdominal wall hernia mesh repair is seen. BONES: Scattered osseous degenerative changes are noted. Right proximal femur hardware is noted. IMPRESSION: No acute intraabdominal abnormality. No significant hydronephrosis seen and the previously noted righ t-sided hydronephrosis is nearly resolved. Nonobstructive 4mm bladder stone. Cholelithiasis. Small bilateral pleural effusion.
[2025-07-14] MEDS ORDERED: LEVO500T91 PO (13:56)
--- NOTE | 2025-07-14 14:01 | DVHDS2 ---
Discharge Summary Date of Admission Jul 10, 2025 at 13:02 Date of Discharge: Jul 14, 2025 Labs/Diagnostic Data: Laboratory Results Test 07/14/25 11:30 07/13/25 11:19 07/11/25 12:00 07/11/25 06:15 POC Glucose 156 mg/dl (70-106) White Blood Count 6.4 10^3/uL (4.4-10.8) Red Blood Count 4.07 10^6/uL (4.0-5.20) Hemoglobin 11.7 g/dL (12.2-16.2) Hematocrit 35.4 % (36.0-46.0) Mean Corpuscular Volume 87.0 fL (80.0-100.0) Mean Corpuscular Hemoglobin 28.7 pg (28.0-32.0) Mean Corpuscular Hemoglobin Concent 33.0 g/dL (32.0-36.0) Red Cell Distribution Width 15.5 % (11.8-14.3) Platelet Count 252 10^3/uL (140-450) Mean Platelet Volume 7.5 fL (6.9-10.8) Neutrophils (%) (Auto) 71.9 % (37.0-80.0) Lymphocytes (%) (Auto) 16.6 % (10.0-50.0) Monocytes (%) (Auto) 7.0 % (0.0-12.0) Eosinophils (%) (Auto) 4.0 % (0.0-7.0) Basophils (%) (Auto) 0.5 % (0.0-2.0) Neutrophils # (Auto) 4.6 10 ^3/uL (1.6-8.6) Lymphocytes # (Auto) 1.1 10 ^3/uL (0.4-5.4) Monocytes # (Auto) 0.4 10 ^3/uL (0-1.3) Eosinophils # (Auto) 0.3 10 ^3/uL (0-0.8) Basophils # (Auto) 0 10 ^3/uL (0-0.2) Nucleated Red Blood Cells 0.2 % Sodium Level 140 mmol/L (136-145) Potassium Level 4.1 mmol/L (3.5-5.1) Chloride Level 111 mmol/L (98-107) Carbon Dioxide Level 21 mmol/L (20-31) Anion Gap 8 (5-15) Blood Urea Nitrogen 12 mg/dL (9-23) Creatinine 0.81 mg/dL (0.550-1.02) Glomerular Filtration Rate Calc 75 mL/min (>90) BUN/Creatinine Ratio 14.8 (10.0-20.0) Serum Glucose 153 mg/dL (74-106) Calcium Level 8.6 mg/dL (8.7-10.4) Prothrombin Time 12.2 sec (9.3-11.8) Prothrombin Time INR 1.17 (0.9-1.15) Total Bilirubin 2.1 mg/dL (0.2-1.0) Aspartate Amino Transferase (AST) 14 U/L (13-40) Alanine Aminotransferase (ALT) 11 U/L (7-40) Alkaline Phosphatase 74 U/L (46-116) Total Protein 6.6 g/dL (5.7-8.2) Albumin 3.7 g/dL (3.2-4.8) Test 07/10/25 10:47 07/10/25 10:33 Lactic Acid Level 1.0 mmol/L (0.4-2.0) Urine Color Light-orange (Yellow) Urine Clarity Ex.turbid (Clear) Urine pH 5.5 (5.0-9.0) Urine Specific [place] 1.017 (1.001-1.035) Urine Protein 1+ (Negative) Urine Ketones Negative (Negative) Urine Blood 3+ /uL (Negative) Urine Nitrite Negative (Negative) Urine Bilirubin Negative (Negative) Urine Urobilinogen Normal mg/dL (Negative) Urine Leukocyte Esterase 3+ /uL (Negative) Urine RBC 394 /hpf (0 - 4) Urine WBC Clumps Present /hpf (None Seen) Urine Microscopic WBC 3778 /HPF (0-5) Urine Squamous Epithelial Cells Few /hpf (<5) Urine Bacteria Few /hpf (None Seen) Urine Mucus Few (None Seen) Urine Yeast (Budding) Moderate /hpf (None Seen) Urine Glucose 2+ mg/dL (Normal) Other Laboratory Tests 07/13/25 11:19 Brief Hx & Hospital Course: 75 year old female is complaining of right lower quadrant pain. Patient reports it radiates to her back and is having nausea with yellow/brown urine that she noticed this morning. Patient states she is also having decreased appetite and chills. Patient was admitted on July 10, 2025, for an E. coli UTI and flank pain related to right ureteral lithiasis. She was started on IV fluids, Flomax, and IV antibiotics. Both blood and urine cultures were positive for gram-negative rods, but repeat blood cultures were negative. At discharge, she was prescribed Levaquin 500 mg daily for 7 additional days and instructed to follow up with Dr. Grimes in 1 week. The patient received proper medical treatment and medications. Vital signs, Imaging and Laboratory Work was monitored daily. All consults recommendations were followed as provided. There were no complaints or new complaints upon discharge, all questions and concerns were answered. Patient was advised to return to the ER or call 911 if any headaches, dizziness, shortness of breath, chest pain, bleeding, fevers, or worsening of medical condition. Patient/Family was counseled about treatment plan, medications, possible side effects, patient verbalized understanding. All questions were answered to the best of my ability. The patient symptoms improved and they are okay to be DC. Condition at Discharge: Stable Final Diagnosis/Problems List e. coli uti Right hydro urethral nephrosis Right ureteral calculi DM type 2 with hyperglycemia Acute cystitis with hematuria Hypothyroid Hyperlipidemia Bacteremia Discharge Disposition: Home Discharge Instruct/Medications Diet: Regular Activity: No Restrictions, As Tolerated Follow Up/Referral: pcp 1 week Scheduled Aspirin (Aspir-Low), 81 MG PO DAILY, (Reported) Atorvastatin Calcium (Atorvastatin Calcium), 1 TAB PO DAILY, (Reported) Letrozole (Femara), 1 TAB PO DAILY, (Reported) Levofloxacin Hemihydrate (Levaquin 500 Mg), 500 MG PO DAILY Levothyroxine Sodium (Levothyroxine Sodium), 1 TAB PO DAILY, (Reported) Lisinopril (Lisinopril), 2.5 MG PO DAILY, (Reported) Magnesium Oxide (Magnesium), 250 MG PO BID, (Reported) Metformin Hydrochloride (Metformin Hcl), 500 MG PO TID, (Reported) Multiple Vitamin (Multivitamins), 1 TAB PO DAILY, (Reported) Discharge Statement: "Patient was advised to return to the ER or call 911 if any headaches, dizziness, shortness of breath, chest pain, abdominal pain, bleeding, fevers, or worsening of medical condition. Patient was counseled about treatment plan, medications, possible side effects, patientverbalized understanding. All questions were answered to the best of my ability. This discharge took greater then 30 minutes in planning, reviewing documentation, counseling the patient, and discussing with other team members." ASSESSMENT ASSESSMENT Assessment e. coli uti CHANDRA ALFRED [employer] Jul 14, 2025 14:00
[2025-07-14 14:30] VITALS: BP 138/76; PULSE 62; RESP 14; TEMP 97.9; O2SAT 97
[2025-07-14 15:04] VITALS: BP 122/72; PULSE 60; RESP 17; TEMP 97.9; O2SAT 97
== END 2025-07-14 15:46 | disposition home or self-care (01) | DRG 690 ==
LOC: ER 10:06 → OVERFLOW 13:02 → TELE-WESTW 16:50
PROVIDERS: ADMIT Nurse Practitioner; ATTEND Nurse Practitioner
DX: N13.6 Pyonephrosis (principal); N20.2 Calculus of kidney with calculus of ureter; R78.81 Bacteremia; N17.0 Acute kidney failure with tubular necrosis; E03.9 Hypothyroidism, unspecified; E78.5 Hyperlipidemia, unspecified; E11.65 Type 2 diabetes mellitus with hyperglycemia; Z88.0 Allergy status to penicillin; Z88.1 Allergy status to other antibiotic agents; Z87.442 Personal history of urinary calculi; Z85.3 Personal history of malignant neoplasm of breast; Z90.710 Acquired absence of both cervix and uterus; Z79.899 Other long term (current) drug therapy; Z79.84 Long term (current) use of oral hypoglycemic drugs
CPT/HCPCS: 36415; 74176; 76775; 80048; 80053; 81001; 82962; 83605; 85025; 85610; 87040; 87077; 87086; 87186; 96365; 96375; G0378; J1815; J1956; J2405

== ENCOUNTER 2025-07-24 16:32 | Inpatient (IN) | payer OTHER ==
[~2025-07-24] VITALS: Ht 167.6 cm; Wt 72.6 kg
[~2025-07-24 16:32] MED LIST changes: +LEVO500T91 PO
--- NOTE | 2025-07-24 17:48 | ED.PDOC ---
Musculoskeletal HPI Comments HPI: 75-year-old female presents to the ED with a chief complaint of left leg swelling. Patient was sent for an ultrasound today, was called by [facility]per and told her to come to the ED due to DVT found on left leg. Patient's states she fractured left great toe on 07/01/25, was admitted on 07/10/25 due to kidney stones and was discharged from [facility] on 07/14/2025. She is currently on Eliquis. Denies chest pain, shortness of breath, fever, chills, numbness/tingling, nausea, vomiting, diarrhea. No other symptoms or modifying factors present at this time. Patient is allergic to iodine Initial Vitals BP: 140/87 HR: 79 RR: 18 O2: 96% Temp: 98.1 F Past Medical History: breast cancer, HTN, HLD, DM Past Surgical History: hysterectomy, mastectomy Social History: Denies ETOH, smoking, and drug use. Medications: Eliquis, jardiance, lisinopril, atorvastatin Allergies: Erythromycin, iodine, lidocaine, penicillins, sulfa antibiotics HPI: Poor Historian. Patient is already on Eliquis. REVIEW OF SYSTEMS: CONSTITUTIONAL: Denies acute: fever, diaphoresis, chills, generalized weakness. HEAD: Denies acute: headache, photophobia Eyes: Denies acute: Double vision, vision loss, eye pain, eye discharge. EARS: Denies acute: tinnitus, hearing loss, ear discharge, ear pain, THROAT: Denies acute: sore throat, swelling, difficulty swallowing , pain with swallowing, change in voice. NECK: Denies acute: neck pain, neck swelling, stiff neck. HEART: Denies acute : chest pain, palpitations, LUNGS: Denies acute: SOB, wheezing, cough, hemoptysis ABDOMEN: Denies acute: abdominal pain, Nausea, Vomiting, diarrhea, melena , hematemesis, hematochezia SKIN: Denies acute: rash, redness, lesions, itchiness. EXTREMITIES: Denies acute: numbness, tingling, weakness, Denies acute: Low back pain. Neuro: Denies acute: focal neurological deficit, motor or sensory focal neurological deficit, tremors, seizure like activity, confusion, dizziness, change in mental status, loss of bowel or bladder function, cauda equina like symptoms. : Denies acute: dysuria, hematuria, flank pain, increase in urinary frequency. PSYCH: Denies acute: hallucination, suicidal ideation, homicidal ideation. FEMALE: Denies acute: abnormal vaginal bleeding, foul odor, unusual discharge. PHYSICAL EXAM: General: ----no----acute distress, awake and alert. Head: normocephalic, atraumatic. Neck: supple, trachea is midline, no swelling. Throat: Normal phonation. Eyes:, no erythema, no purulent discharge, no proptosis, no icterus. Heart: regular rate, regular rhythm, no significant murmur appreciated. Lungs: no apparent respiratory distress, Able to speak in full sentences. No wheezing, no rhonchi, no crackles. No stridors Clear to auscultation bilaterally. Abdomen: non tender to palpation, non distended, soft, no guarding, no rebound, + bowel sounds. Neuro: Awake, Alert, oriented to name, self, situation, follows commands GCS=15. Speech is normal. Skin: no petechia, no purpura, no cyanosis, non-pale, not jaundice. Lower extremities: --left lower extremity [id number] swelling- Pitting edema no deformity, no focal swelling, Makes eye contact. moves all four extremities. Face: no apparent facial droop. Ambulating in the ED independently. Pedal pulses are palpable. ED COURSE: DISCLAIMER: This medical document was created using an electronic medical record system with voice recognition software and computerized dictation system. Although this document has been carefully reviewed, there might still be some phonetic and typographical errors. Occasional wrong-word or "sound-alike" substitutions may have occurred due to the inherent limitations of voice recognition software. These areas are purely typographical due to imperfections of the software programs and do not reflect any compromise in the patient's medical care. Please read the chart carefully and recognize, using context, where these substitutions have occurred. Chief Complaint: Lower Extremity Time Seen by MD: 17:15 Reviewed Notes: Medications, Allergies Allergies: Coded Allergies: Erythromycin (Verified Allergy, Unknown, 08/24/20) Iodine (Verified Allergy, Unknown, 08/24/20) Lidocaine (Verified Allergy, Unknown, 08/24/20) Loracarbef (Verified Allergy, Unknown, 08/24/20) Penicillins (Verified Allergy, Unknown, 08/24/20) Sulfa Antibiotics (Verified Allergy, Unknown, 08/24/20) Home Meds Active Scripts Levofloxacin Hemihydrate (LEVAQUIN 500 MG) 500 Mg Tab, 500 MG PO DAILY for 7 Days, #7 TAB Prov:CHANDRA ALFRED Bhupinder DYED YARN OPERATOR 07/14/25 Reported Medications Magnesium Oxide (Magnesium) 250 Mg Tab, 250 MG PO BID, TAB 02/02/18 Multiple Vitamin (Multivitamins) Tab, 1 TAB PO DAILY, #90 TAB 3 Refills 02/02/18 Aspirin (Aspir-Low) 81 Mg Tab, 81 MG PO DAILY for 30 Days, MG 02/02/18 Lisinopril (Lisinopril) 2.5 Mg Tab, 2.5 MG PO DAILY for 30 Days, MG 02/02/18 Letrozole (Femara) 2.5 Mg Tab, 1 TAB PO DAILY, #30 TAB 11 Refills 02/02/18 Levothyroxine Sodium (Levothyroxine Sodium) 75 Mcg Tab, 1 TAB PO DAILY, #30 TAB 5 Refills 02/02/18 Atorvastatin Calcium (ATORVASTATIN CALCIUM) 10 Mg Tab, 1 TAB PO DAILY, #30 TAB 5 Refills 02/02/18 Metformin Hydrochloride (Metformin Hcl) 500 Mg Tab, 500 MG PO TID for 30 Days, MG 02/02/18 Information Source: Patient Mode of Arrival: Ambulatory Location: Left Extremity Location: Leg Timing: Hours Prehospital treatment: None Severity: Moderate Able to Move Extremity: Yes Bear Weight: Limited Pain: Moderate Mechanism: Spontaneous Circumstances: Spontaneous Onset of Symptoms: Spontaneous Symptoms: Swelling DVT Risk Factors: NONE Associated signs and symptoms: Swelling Past Medical History PAST MEDICAL HISTORY: Cancer, High Lipids, HTN, Kidney Stones Surgical History: Hysterectomy MAJOR DONOR COORDINATOR History: No Pertinent MAJOR DONOR COORDINATOR History Family History Family History: Reviewed,noncontributory to illness, No family hx of Cancer, No family hx of DM, No family hx of Heart skye, No family hx of HTN, No family hx ofKidney skye, No family hx of Liver skye, No family hx of Lung skye, No family hx of Stroke Social History Smoker: Non-Smoker Alcohol: Denies ETOH Use Drugs: Denies Drug Use Lives In: Home Was a procedure done? Was a procedure done?: No Differential Diagnosis EXT Differential Diagnosis: Cellulitis, CHF, Deep Vein Thrombosis, Compartment Syndrome, Fracture, Sprain, Dislocation, Myocardial Infarction, Contusion, Strain, Septic, Hernia, Neurovascular injury, Arthritis, Bursitis, Other (Leg swellingDdx include but not limited to DVT, ischemic limb, pitting edema, volume overload, CHF, cellulitis, hematoma, compartment syndrome, dependent edema, venous stasis.) X-Ray, Labs, Meds, VS Vital Signs Date Time Temp Pulse Resp B/P (MAP) Pulse Ox O2 Delivery O2 Flow Rate FiO2 07/24/25 16:40 98.1 79 18 140/87 96 98.1 Lab Test 07/24/25 17:31 Range/Units White Blood Count 7.6 4.4-10.8 10^3/uL Red Blood Count 4.80 4.0-5.20 10^6/uL Hemoglobin 13.7 12.2-16.2 g/dL Hematocrit 41.0 36.0-46.0 % Mean Corpuscular Volume 85.4 80.0-100.0 fL Mean Corpuscular Hemoglobin 28.6 28.0-32.0 pg Mean Corpuscular Hemoglobin Concent 33.5 32.0-36.0 g/dL Red Cell Distribution Width 15.3 H 11.8-14.3 % Platelet Count 422 140-450 10^3/uL Mean Platelet Volume 7.1 6.9-10.8 fL Neutrophils (%) (Auto) 56.9 37.0-80.0 % Lymphocytes (%) (Auto) 28.9 10.0-50.0 % Monocytes (%) (Auto) 7.4 0.0-12.0 % Eosinophils (%) (Auto) 3.2 0.0-7.0 % Basophils (%) (Auto) 3.6 H 0.0-2.0 % Neutrophils # (Auto) 4.3 1.6-8.6 10 ^3/uL Lymphocytes # (Auto) 2.2 0.4-5.4 10 ^3/uL Monocytes # (Auto) 0.6 0-1.3 10 ^3/uL Eosinophils # (Auto) 0.2 0-0.8 10 ^3/uL Basophils # (Auto) 0.3 H 0-0.2 10 ^3/uL Nucleated Red Blood Cells 0.0 % Prothrombin Time 11.0 9.3-11.8 sec Prothrombin Time INR 1.04 0.9-1.15 Activated Partial Thromboplast Time 26.2 24.5-34.5 SEC Sodium Level 141 136-145 mmol/L Potassium Level 4.2 3.5-5.1 mmol/L Chloride Level 102 98-107 mmol/L Carbon Dioxide Level 27 20-31 mmol/L Anion Gap 12 5-15 Blood Urea Nitrogen 26 H 9-23 mg/dL Creatinine 1.01 0.550-1.02 mg/dL Glomerular Filtration Rate Calc 58 >90 mL/min BUN/Creatinine Ratio 25.7 H 10.0-20.0 Serum Glucose 157 H 74-106 mg/dL Calcium Level 9.6 8.7-10.4 mg/dL Total Bilirubin 1.3 H 0.2-1.0 mg/dL Aspartate Amino Transferase (AST) 21 13-40 U/L Alanine Aminotransferase (ALT) 20 7-40 U/L Alkaline Phosphatase 89 46-116 U/L Troponin I High Sensitivity 6 </=34 ng/L Total Protein 7.4 5.7-8.2 g/dL Albumin 4.4 3.2-4.8 g/dL Time of 1ST Reevaluation: 17:45 Reevaluation 1ST: Unchanged Patient Education/Counseling: Diagnosis, Treatment Family Education/Counseling: No Family Present Comments MDM: patient presented with the above HPI.--established extremity DVT----workup was initiated. patient was found with the above mentioned diagnosis. the following medications were ordered: please refer to order lists of meds and tests obtained by myself Dr. Oquendo. Patient ED course and VS have been stabilized. Patient has been reassessed in the ED and remained in a stable condition. Pertinent incidental findings were discussed with the patient and/or family. Patient/family voices understanding and is agreeable with plan. Patient has been observed in the ED adequate length of time to insure improvement/stability. Escalation of care considered: Consideration of escalation to observation or admission Ultrasound CD accompanying the patient was reviewed by our pattern technician and she informed me that the patient has popliteal occlusive DVT. Patient is a lready on [facility]. Patient was ADMITTED to the medicine team for further evaluation and treatment of their presentation. All the reports of any imaging studies that were ordered by myself were reviewed by myself. Departure 1 Departure Time of Disposition: 17:48 Impression: Primary Impression: Deep vein thrombosis, lower left extremity Additional Impression: Deep venous thrombosis of left popliteal vein Disposition: ADMITTED INPATIENT Admit to: Tele Condition: Guarded Discharged With: Self Critical Care Note Critical Care Time?: No I personally scribed for ADINA OQUENDO DO ([email or web address]) on 07/24/25 at 17:57. Electronically submitted by Karen Peraza ([email or web address]). ADINA OQUENDO DO Jul 24, 2025 17:48
[2025-07-24 18:11] LABS: Hematocrit 41.0 % (36.0-46.0); Hemoglobin 13.7 g/dL (12.2-16.2); Mean Corpuscular Hemoglobin 28.6 pg (28.0-32.0); Mean Corpuscular Volume 85.4 fL (80.0-100.0); Nucleated Red Blood Cells % 0.0 %
[2025-07-24 18:23] LABS: INR 1.04 (0.9-1.15); Partial Thromboplastin Time 26.2 SEC (24.5-34.5); Prothrombin Time 11.0 sec (9.3-11.8)
[2025-07-24 18:27] LABS: Alanine Aminotransferase 20 U/L (7-40); Albumin 4.4 g/dL (3.2-4.8); Alkaline Phosphatase 89 U/L (46-116); Anion Gap 12 (5-15); BUN/Creatinine Ratio 25.7 (10.0-20.0); Calcium 9.6 mg/dL (8.7-10.4); Carbon Dioxide 27 mmol/L (20-31); Chloride 102 mmol/L (98-107); Potassium 4.2 mmol/L (3.5-5.1); Sodium 141 mmol/L (136-145); Total Protein 7.4 g/dL (5.7-8.2)
[2025-07-24 18:30] LABS: Bilirubin, Total 1.3 mg/dL (0.2-1.0); Blood Urea Nitrogen 26 mg/dL (9-23); Glucose 157 mg/dL (74-106)
--- NOTE | 2025-07-24 19:07 | DVHHP2 ---
Admitting Diagnosis: Left leg swelling History of Present Illness 75 yo female patient presents with c/o left leg swelling. Patient had a US done that showed a DVT to her left leg and was told to go to the ER. Patient is currently on Eliquis. While in the emergency department the patient was evaluated by the provider, As per provider: Labs, vital signs, and imagining monitored. Patient will be admitted for further evaluation and treatment. I discussed admission with the patient/family and is in agreement to treatment plan. Allergies: Coded Allergies: Erythromycin (Verified Allergy, Unknown, 08/24/20) Iodine (Verified Allergy, Unknown, 08/24/20) Lidocaine (Verified Allergy, Unknown, 08/24/20) Loracarbef (Verified Allergy, Unknown, 08/24/20) Penicillins (Verified Allergy, Unknown, 08/24/20) Sulfa Antibiotics (Verified Allergy, Unknown, 08/24/20) Home Meds Active Scripts Levofloxacin Hemihydrate (LEVAQUIN 500 MG) 500 Mg Tab, 500 MG PO DAILY for 7 Days, #7 TAB Prov:CHANDRA ALFRED CORPORATE EVENT PLANNER 07/14/25 Reported Medications Magnesium Oxide (Magnesium) 250 Mg Tab, 250 MG PO BID, TAB 02/02/18 Multiple Vitamin (Multivitamins) Tab, 1 TAB PO DAILY, #90 TAB 3 Refills 02/02/18 Aspirin (Aspir-Low) 81 Mg Tab, 81 MG PO DAILY for 30 Days, MG 02/02/18 Lisinopril (Lisinopril) 2.5 Mg Tab, 2.5 MG PO DAILY for 30 Days, MG 02/02/18 Letrozole (Femara) 2.5 Mg Tab, 1 TAB PO DAILY, #30 TAB 11 Refills 02/02/18 Levothyroxine Sodium (Levothyroxine Sodium) 75 Mcg Tab, 1 TAB PO DAILY, #30 TAB 5 Refills 02/02/18 Atorvastatin Calcium (ATORVASTATIN CALCIUM) 10 Mg Tab, 1 TAB PO DAILY, #30 TAB 5 Refills 02/02/18 Metformin Hydrochloride (Metformin Hcl) 500 Mg Tab, 500 MG PO TID for 30 Days, MG 02/02/18 Current Medications Current Medications Medications (Trade) Dose Ordered Sig/Bhavna Route PRN Reason Start Time Stop Time Status Last Admin Acetaminophen/ Hydrocodone Bitart (Ogden 5/325MG Tab) 1 tab Q4HP PRN PO MODERATE PAIN (4-6 PAIN SCALE) 07/24/25 19:15 Ondansetron HCl (Zofran) 4 mg Q4HP PRN IV NAUSEA / VOMITING 07/24/25 19:15 Acetaminophen (Tylenol Tablet) 650 mg Q6HP PRN PO PAIN SCALE 1-3 OR TEMP>100.4 07/24/25 19:15 Morphine Sulfate 2 mg Q4HPRN PRN IV SEVERE PAIN (7-10 PAIN SCALE) 07/24/25 19:15 Nitroglycerin (Ntrostat Sublingual) 0.4 mg Q5MINP PRN SL FOR CHEST PAIN 07/24/25 19:15 Morphine Sulfate 2 mg Q30M PRN IV FOR CHEST PAIN 07/24/25 19:15 Pantoprazole Sodium (Protonix) 40 mg DAILY IV 07/25/25 10:00 Enoxaparin Sodium (Lovenox) 70 mg Q12HR SC 07/24/25 22:00 Levofloxacin (Levaquin Tablet) 500 mg DAILY PO 07/25/25 10:00 Metformin HCl (Glucophage) 500 mg TID PO 07/24/25 22:00 Atorvastatin Calcium (Lipitor) 10 mg HS PO 07/24/25 22:00 Levothyroxine Sodium (Synthroid Tablet) 75 mcg DAILY PO 07/25/25 10:00 Lisinopril (Zestril Tablet) 2.5 mg DAILY PO 07/25/25 10:00 Patient Own Medication 250 mg BID PO 07/24/25 22:00 UNV Diagnostic Test (Pha) (Accu-Chek Comfort Curve T) 1 strip ACHS 07/24/25 22:00 Insulin Human Regular (InsuLIN R) ACHS SC 07/24/25 22:00 Dextrose 50 ml UD PRN IV Blood Sugar LESS THAN 60 07/24/25 19:15 Review of Systems Constitutional: denies chills, denies fever, denies malaise Eyes: denies eye pain, denies vision change ENT: denies ear pain, denies headache, denies nasal congestion, denies painful swallowing, denies voice change Cardiovascular: denies chest pain, denies edema, denies orthopnea, denies palpitations, denies paroxysmal nocturnal dyspnea Respiratory: denies cough, denies shortness of breath Gastrointestinal: denies constipation, denies diarrhea, denies nausea, denies vomiting Genitourinary: denies dysuria, denies frequent urination, denies urethral discharge Musculoskeletal: denies back pain, denies joint pain, denies muscle pain Skin: denies bruising, denies itching, denies rash Neurological: denies focal weakness, denies headache, denies sensory changes Psychiatric: denies anxiety, denies depression Endocrine: denies polydipsia, denies polyuria Hematologic/Lymphatic: denies easy bleeding, denies easy bruising, denies enlarged lymph nodes Allergic/Immunologic: denies allergy, denies hives Vital Signs Vital Signs Date Time Temp Pulse Resp B/P (MAP) Pulse Ox O2 Delivery O2 Flow Rate FiO2 07/24/25 16:40 98.1 79 18 140/87 96 98.1 Physical Exam General Appearance: alert, no distress HEENT: EOMI, PERRLA, normal external inspect of ears, no icterus, no nasal drainage Neck: no carotid bruit, no jugular venous distention (JVD), no lymphadenopathy Chest: normal thorax Respiratory: clear to auscultation, normal air movement Cardiovascular: regular rate and rhythm, no diastolic murmur, no jugular venous distention (JVD), no rub, no systolic murmur Abdominal: soft, no hepatomegaly, no mass, no splenomegaly, no tenderness Genitourinary: grossly normal external Musculoskeletal: no joint tenderness, no swelling Extremities: normal pulses, no calf tenderness, no clubbing, no cyanosis, no edema Skin: no bruising, no jaundice, no rash Neurological: alert, No focal deficit SEPSIS Sepsis Screen Date sepsis recognized/suspect: Jul 24, 2025 Time Sepsis recognized/suspect: 1640 Recent Procedure: No On Antibiotic Therapy: No Respiratory Rate >20: No Heart Rate >90: No Temp<36 C (96.8 F) or >38.3 C: No SBP <90 or MAP <65 mmHG: No New Acute Mental Status Change: No Is the patient on CPAP, BIPAP,: No Physician Orders Landscape Architect And Planner (07/24/25 ) Electrocardigram (07/24/25 17:15) Admit (07/24/25 19:05) Hydrocodone-Acet 5/325mg Tab (Ogden 5/32 (07/24/25 19:15) Ondansetron Hcl (Zofran) (07/24/25 19:15) Complete Blood Count (07/25/25 04:00) Comprehensive Metabolic Panel (07/25/25 04:00) Condition: Stable (07/24/25 19:05) Acetaminophen Tablet (Tylenol Tablet) (07/24/25 19:15) Morphine Sulfate Injection (07/24/25 19:15) Nitroglycerin Sublingual (Ntrostat Subli (07/24/25:15) Morphine Sulfate Injection (07/24/25 19:15) Stat Ekg For Chest Pain (07/24/25 19:05) Notify Md Of Changes From Base (07/24/25 19:05) Ldr Nurse For 24 Hours (07/24/25 19:05) Emergency Dysrhythmia Protocol (07/24/25 19:) Rhythm Strips Once Every Shift (07/24/25 19:05) Oxygen By Nasal Cannula (07/24/25 19:05) Pantoprazole (Protonix) (07/25/25 10:00) Levofloxacin Tablet (Levaquin Tablet) (07/25/25 10:00) Metformin Hydrochloride (Glucophage) (07/24/25 22:00) Levothyroxine Tablet (Synthroid Tablet) (07/25/25 10:00) Lisinopril Tablet (Zestril Tablet) (07/25/25 10:00) (Nf) Magnesium Oxide (Magnesium) (07/24/25 22:00) Glucose Blood (Accu-Chek Comfort Curve T (07/24/25 22:00) Insulin R (Human) (Insulin R) (07/24/25 22:00) Dextrose 50% Syringe (07/24/25:15) Cardiac Diet-2gna,Lofat,Lochol (07/25/25 Breakfast) Enoxaparin Sodium (Lovenox) (07/24/25 22:00) Atorvastatin (Lipitor) (07/24/25 22:00) Vital Signs Date Time Temp Pulse Resp B/P (MAP) Pulse Ox O2 Delivery O2 Flow Rate FiO2 07/24/25 16:40 98.1 79 18 140/87 96 98.1 Laboratory Tests Test 07/24/25 17:31 White Blood Count 7.6 10^3/uL (4.4-10.8) Results Labs Test 07/24/25 17:31 Range/Units White Blood Count 7.6 4.4-10.8 10^3/uL Red Blood Count 4.80 4.0-5.20 10^6/uL Hemoglobin 13.7 12.2-16.2 g/dL Hematocrit 41.0 36.0-46.0 % Mean Corpuscular Volume 85.4 80.0-100.0 fL Mean Corpuscular Hemoglobin 28.6 28.0-32.0 pg Mean Corpuscular Hemoglobin Concent 33.5 32.0-36.0 g/dL Red Cell Distribution Width 15.3 H 11.8-14.3 % Platelet Count 422 140-450 10^3/uL Mean Platelet Volume 7.1 6.9-10.8 fL Neutrophils (%) (Auto) 56.9 37.0-80.0 % Lymphocytes (%) (Auto) 28.9 10.0-50.0 % Monocytes (%) (Auto) 7.4 0.0-12.0 % Eosinophils (%) (Auto) 3.2 0.0-7.0 % Basophils (%) (Auto) 3.6 H 0.0-2.0 % Neutrophils # (Auto) 4.3 1.6-8.6 10 ^3/uL Lymphocytes # (Auto) 2.2 0.4-5.4 10 ^3/uL Monocytes # (Auto) 0.6 0-1.3 10 ^3/uL Eosinophils # (Auto) 0.2 0-0.8 10 ^3/uL Basophils # (Auto) 0.3 H 0-0.2 10 ^3/uL Nucleated Red Blood Cells 0.0 % Prothrombin Time 11.0 9.3-11.8 sec Prothrombin Time INR 1.04 0.9-1.15 Activated Partial Thromboplast Time 26.2 24.5-34.5 SEC Sodium Level 141 136-145 mmol/L Potassium Level 4.2 3.5-5.1 mmol/L Chloride Level 102 98-107 mmol/L Carbon Dioxide Level 27 20-31 mmol/L Anion Gap 12 5-15 Blood Urea Nitrogen 26 H 9-23 mg/dL Creatinine 1.01 0.550-1.02 mg/dL Glomerular Filtration Rate Calc 58 >90 mL/min BUN/Creatinine Ratio 25.7 H 10.0-20.0 Serum Glucose 157 H 74-106 mg/dL Calcium Level 9.6 8.7-10.4 mg/dL Total Bilirubin 1.3 H 0.2-1.0 mg/dL Aspartate Amino Transferase (AST) 21 13-40 U/L Alanine Aminotransferase (ALT) 20 7-40 U/L Alkaline Phosphatase 89 46-116 U/L Troponin I High Sensitivity 6 </=34 ng/L Total Protein 7.4 5.7-8.2 g/dL Albumin 4.4 3.2-4.8 g/dL Plan 1. Acute DVT to LLE Monitor, full dose Lovenox 2. Chronic anticoagulation with Eliquis Monitor, full dose Lovenox 3. Hyponatremia Monitor, restart Synthroid 4. HLD Monitor, PPI 5. Benign essential HTN Monitor, restart lisinopril, restart atorvastatin 6. DM II & hyperglycemia Monitor, insulin ss Plan discussed with: Patient, Other CHANDRA ALFRED NP Jul 24, 2025 19:07
[2025-07-24] MEDS ORDERED: ONDANSETRON HCL 4 MG/2 ML VIAL IV PRN (19:15)
[2025-07-24] MEDS ORDERED: ACETAMINOPHEN 325 MG TAB PO PRN (19:15)
[2025-07-24] MEDS ORDERED: NITROGLYCERIN 0.4 MG SL TAB SL PRN (19:15)
[2025-07-24] MEDS ORDERED: DEXTROSE (50%) 50ML SYRG IV PRN (19:15)
[2025-07-24] MEDS ORDERED: MORPHINE SULFATE INJ 2 MG/ml SYRG IV PRN ×2 (19:15)
[2025-07-24] MEDS: ACCU-CHEK COMFORT CURVE STRIP VI SCH (22:00)
[2025-07-25 06:24] LABS: Hematocrit 43.2 % (36.0-46.0); Hemoglobin 15.1 g/dL (12.2-16.2); Mean Corpuscular Hemoglobin 29.6 pg (28.0-32.0); Mean Corpuscular Volume 84.9 fL (80.0-100.0); Nucleated Red Blood Cells % 0.0 %
[2025-07-25 06:38] LABS: Alanine Aminotransferase 15 U/L (7-40); Albumin 4.8 g/dL (3.2-4.8); Alkaline Phosphatase 95 U/L (46-116); Anion Gap 9 (5-15); BUN/Creatinine Ratio 20.5 (10.0-20.0); Blood Urea Nitrogen 18 mg/dL (9-23); Calcium 10.1 mg/dL (8.7-10.4); Carbon Dioxide 27 mmol/L (20-31); Chloride 102 mmol/L (98-107); Potassium 3.8 mmol/L (3.5-5.1); Sodium 138 mmol/L (136-145)
[2025-07-25 06:39] LABS: Bilirubin, Total 1.7 mg/dL (0.2-1.0); Glucose 175 mg/dL (74-106); Total Protein 8.6 g/dL (5.7-8.2)
[2025-07-25] MEDS: InsuLIN REG 1unit/0.01ml Soln (100units/ml) SC SCH (07:07)
[2025-07-25] MEDS: ATORVASTATIN 20 MG TAB PO SCH (07:08)
[2025-07-25] MEDS: ENOXAPARIN SOD 80 MG/0.8ML SYRINGE SC SCH (07:08)
[2025-07-25 09:00] VITALS: BP 132/66; PULSE 68; RESP 17; TEMP 97.8; O2SAT 100
[2025-07-25] MEDS: LEVOTHYROXINE SODIUM 25 MCG TAB PO SCH (11:45)
[2025-07-25] MEDS: levoFLOXacin 500 MG TAB PO SCH (11:45)
[2025-07-25] MEDS: PANTOPRAZOLE 40 MG/10 ML VIAL INJ IV SCH (11:45)
[2025-07-25] MEDS: LISINOPRIL 5 MG TAB PO SCH (11:49)
[2025-07-25 12:51] VITALS: BP 131/78; PULSE 67; RESP 16; TEMP 97.9; O2SAT 99
--- NOTE | 2025-07-25 13:22 | DVHPN2 ---
Progress Note - Dictate Date Seen: Jul 25, 2025 Medical Necessity Reason Pt with a Central, PICC or Fol: No vital signs Vital Sign Date Time Temp Pulse Resp B/P (MAP) Pulse Ox O2 Delivery O2 Flow Rate FiO2 07/25/25 12:51 97.9 67 16 131/78 (95) 99 97.9 medications Current Medications Medications Dose Ordered Sig/Bhavna Route Start Time Stop Time Status Last Admin Dose Admin Acetaminophen/ Hydrocodone Bitart 1 tab Q4HP PRN PO 07/24/25 19:15 Ondansetron HCl 4 mg Q4HP PRN IV 07/24/25 19:15 Acetaminophen 650 mg Q6HP PRN PO 07/24/25 19:15 Morphine Sulfate 2 mg Q4HPRN PRN IV 07/24/25 19:15 Nitroglycerin 0.4 mg Q5MINP PRN SL 07/24/25 19:15 Morphine Sulfate 2 mg Q30M PRN IV 07/24/25 19:15 Pantoprazole Sodium 40 mg DAILY IV 07/25/25 10:00 07/25/25 11:45 40 MG Enoxaparin Sodium 70 mg Q12HR SC 07/24/25 22:00 07/25/25 11:46 70 MG Levofloxacin 500 mg DAILY PO 07/25/25 10:00 07/25/25 11:45 500 MG Metformin HCl 500 mg TID PO 07/24/25 22:00 Atorvastatin Calcium 10 mg HS PO 07/24/25 22:00 07/25/25 07:08 10 MG Levothyroxine Sodium 75 mcg DAILY PO 07/25/25 10:00 07/25/25 11:45 75 MCG Lisinopril 2.5 mg DAILY PO 07/25/25 10:00 07/25/25 11:49 2.5 MG Patient Own Medication 250 mg BID PO 07/24/25 22:00 Diagnostic Test (Pha) 1 strip ACHS 07/24/25 22:00 07/25/25 11:30 1 STRIP Insulin Human Regular ACHS SC 07/24/25 22:00 07/25/25 07:07 3 UNITS Dextrose 50 ml UD PRN IV 07/24/25 19:15 objective General Appearance: alert, no distress HEENT: EOMI, PERRLA, normal external inspect of ears, no icterus, no nasal drainage Neck: no carotid bruit, no jugular venous distention (JVD), no lymphadenopathy Chest: normal thorax Respiratory: clear to auscultation, normal air movement Cardiovascular: regular rate and rhythm, no diastolic murmur, no jugular venous distention (JVD), no rub, no systolic murmur Abdominal: soft, no hepatomegaly, no mass, no splenomegaly, no tenderness Genitourinary: grossly normal external Musculoskeletal: no joint tenderness, no swelling Extremities: normal pulses, no calf tenderness, no clubbing, no cyanosis, no edema Skin: no bruising, no jaundice, no rash Neurological: alert, No focal deficit laboratory and microbiology Laboratory Tests 07/25/25 05:57 Test 07/25/25 05:57 Range/Units Serum Glucose 175 H 74-106 mg/dL Problem List 1. Acute DVT to LLE Monitor, full dose Lovenox 2. Chronic anticoagulation with Eliquis Monitor, full dose Lovenox 3. Hyponatremia Monitor, restart Synthroid 4. HLD Monitor, PPI 5. Benign essential HTN Monitor, restart lisinopril, restart atorvastatin 6. DM II & hyperglycemia Monitor, insulin ss Assessment/Plan Subjective: Patient is awake and alert. Objective: I spoke with patient in regards to plan of care. Patient states that she was on Eliquis for chronic anticoagulation. Patient was here at [facility] on prior admission. I told her on her medication reconciliation only baby aspirin was shown. Anticoagulation was held on previous admission for possible stent placement by radiology, however patient passed her ureteral stone and no need for stent at that time. Anticoagulation was held during the hospital stay. Provider was not aware that patient was on Eliquis. Patient reported her leg swelling shortly after discharge. Ultrasound imaging shows acute DVT to her left lower extremity which is more pronounced than swelling to right leg. Plan: Continue full dose Lovenox. Consult radiology for possible thrombectomy. Monitor EKG. Continue home medications. Plan discussed with: Patient, Other CHANDRA ALFRED NP Jul 25, 2025 13:21
--- NOTE | 2025-07-25 15:15 | DVH ---
Left lower extremity venous duplex Clinical History: yes, repeat per dr murillo Comparison: None Technique: Duplex Doppler evaluation of the deep venous systems of left lower extremities from the common femora l veins to the popliteal veins including color Doppler and spectral/pulsed waveform analysis was perf ormed. Findings: LEFT SIDE: The common femoral vein demonstrates appropriate compressibility and waveform variability. There is compressibility/patency of the great saphenous vein at the proximal thigh. The femoral vein demonstrates appropriate compressibility and waveform variability. The deep femoral vein demonstrates appropriate compressibility and waveform variability. The popliteal vein demonstrates thrombus noncompressibility of the left popliteal vein no flow and no augmentation. There is normal compressibility at the tibioperoneal trunk. Impression: 1. Occlusive thrombus in the left popliteal vein.
[2025-07-25 15:46] VITALS: BP 117/77; PULSE 86; RESP 18; TEMP 97.5; O2SAT 98
[2025-07-25 15:51] VITALS: PULSE 84; RESP 18; O2SAT 98
[2025-07-25] MEDS: HYDROcodone-ACET 5/325MG TAB PO PRN (16:17)
[2025-07-25 20:00] VITALS: PULSE 68; PULSE 69; RESP 18; O2SAT 96
[2025-07-25 21:00] VITALS: BP 118/70; PULSE 67; RESP 18; TEMP 97.7; O2SAT 97
[2025-07-26] VITALS (8 sets, daily range): BP systolic 106–131; BP diastolic 60–73; PULSE 66–86; RESP 16–79; TEMP 97.9–98.6; O2SAT 65–99
--- NOTE | 2025-07-26 11:31 | DVHPN2 ---
Progress Note - Dictate Date Seen: Jul 26, 2025 Medical Necessity Reason Pt with a Central, PICC or Fol: No vital signs Vital Sign Date Time Temp Pulse Resp B/P (MAP) Pulse Ox O2 Delivery O2 Flow Rate FiO2 07/26/25 09:34 135/64 07/26/25 09:00 98.3 86 17 65 98.3 07/25/25 20:00 Room Air* 0 21 Total Intake and Output 07/25/25 07/25/25 07/26/25 15:00 23:00 07:00 Intake Total 1050 ml 300 ml Balance 1050 ml 300 ml medications Current Medications Medications Dose Ordered Sig/Bhavna Route Start Time Stop Time Status Last Admin Dose Admin Acetaminophen/ Hydrocodone Bitart 1 tab Q4HP PRN PO 07/24/25 19:15 07/25/25 16:17 1 TAB Ondansetron HCl 4 mg Q4HP PRN IV 07/24/25 19:15 Acetaminophen 650 mg Q6HP PRN PO 07/24/25 19:15 Morphine Sulfate 2 mg Q4HPRN PRN IV 07/24/25 19:15 Nitroglycerin 0.4 mg Q5MINP PRN SL 07/24/25 19:15 Morphine Sulfate 2 mg Q30M PRN IV 07/24/25 19:15 Pantoprazole Sodium 40 mg DAILY IV 07/25/25 10:00 07/26/25 09:32 40 MG Enoxaparin Sodium 70 mg Q12HR SC 07/24/25 22:00 07/25/25 21:49 70 MG Levofloxacin 500 mg DAILY PO 07/25/25 10:00 07/26/25 09:32 500 MG Metformin HCl 500 mg TID PO 07/24/25 22:00 Atorvastatin Calcium 10 mg HS PO 07/24/25 22:00 07/25/25 21:09 10 MG Levothyroxine Sodium 75 mcg DAILY PO 07/25/25 10:00 07/26/25 09:33 75 MCG Lisinopril 2.5 mg DAILY PO 07/25/25 10:00 07/26/25 09:34 2.5 MG Patient Own Medication 250 mg BID PO 07/24/25 22:00 Diagnostic Test (Pha) 1 strip ACHS 07/24/25 22:00 07/26/25 05:32 1 STRIP Insulin Human Regular ACHS SC 07/24/25 22:00 07/26/25 05:32 3 UNITS Dextrose 50 ml UD PRN IV 07/24/25 19:15 objective General Appearance: alert, no distress HEENT: EOMI, PERRLA, normal external inspect of ears, no icterus, no nasal drainage Neck: no carotid bruit, no jugular venous distention (JVD), no lymphadenopathy Chest: normal thorax Respiratory: clear to auscultation, normal air movement Cardiovascular: regular rate and rhythm, no diastolic murmur, no jugular venous distention (JVD), no rub, no systolic murmur Abdominal: soft, no hepatomegaly, no mass, no splenomegaly, no tenderness Genitourinary: grossly normal external Musculoskeletal: no joint tenderness, no swelling Extremities: normal pulses, no calf tenderness, no clubbing, no cyanosis, no edema Skin: no bruising, no jaundice, no rash Neurological: alert, No focal deficit laboratory and microbiology Laboratory Tests 07/25/25 05:57 Test 07/25/25 05:57 Range/Units Serum Glucose 175 H 74-106 mg/dL Problem List 1. Acute DVT to LLE Monitor, full dose Lovenox 2. Chronic anticoagulation with Eliquis Monitor, full dose Lovenox 3. Hyponatremia Monitor, restart Synthroid 4. HLD Monitor, PPI 5. Benign essential HTN Monitor, restart lisinopril, restart atorvastatin 6. DM II & hyperglycemia Monitor, insulin ss Assessment/Plan Subjective: Patient is awake and alert. Objective: Patient reports she was on chronic anticoagulation with Eliquis as an outpatient, though there is no prescription record since she received samples from Dr. Lock office. Medication reconciliation may not have been done correctly, as records indicate baby aspirin, which the patient denies taking. She states she has been on Eliquis since 2019, started by Dr. Westbrook after a large hematoma to her left jugular. Patient was previously admitted for observation due to possible need for nephrostomy tube for hydronephrosis and UTI; during that admission, anticoagulation was held, as it was not known she was taking Eliquis. She also reports noncompliance with Eliquis twice-daily dosing. Patient now has an acute DVT of the left lower extremity, most likely from being off anticoagulation for the past two weeks. Swelling in the left lower extremity is improving. Plan: Continue current treatment. Restart Eliquis 10 mg twice daily upon discharge per Dr. Grimes. Discharge planning for tomorrow. Plan discussed with: Patient, Other CHANDRA ALFRED NP Jul 26, 2025 11:31
[2025-07-27 01:00] VITALS: BP 134/78; PULSE 77; RESP 18; TEMP 98.4; O2SAT 98
[2025-07-27 05:00] VITALS: BP 110/70; PULSE 91; RESP 17; TEMP 98.2; O2SAT 97
[2025-07-27 08:00] VITALS: PULSE 76
[2025-07-27 09:00] VITALS: BP 108/63; PULSE 71; RESP 18; TEMP 97.9; O2SAT 96
[2025-07-27] MEDS ORDERED: APIX5TAB PO (09:15)
[2025-07-27 10:59] VITALS: BP 108/63; TEMP 36.6
--- NOTE | 2025-07-27 18:26 | DVHDS2 ---
Discharge Summary Date of Admission Jul 24, 2025 at 19:05 Date of Discharge: Jul 27, 2025 Labs/Diagnostic Data: Laboratory Results Test 07/27/25 05:31 07/25/25 05:57 07/24/25 17:31 POC Glucose 187 mg/dl (70-106) White Blood Count 7.5 10^3/uL (4.4-10.8) Red Blood Count 5.09 10^6/uL (4.0-5.20) Hemoglobin 15.1 g/dL (12.2-16.2) Hematocrit 43.2 % (36.0-46.0) Mean Corpuscular Volume 84.9 fL (80.0-100.0) Mean Corpuscular Hemoglobin 29.6 pg (28.0-32.0) Mean Corpuscular Hemoglobin Concent 34.9 g/dL (32.0-36.0) Red Cell Distribution Width 15.3 % (11.8-14.3) Platelet Count 449 10^3/uL (140-450) Mean Platelet Volume 6.6 fL (6.9-10.8) Neutrophils (%) (Auto) 55.9 % (37.0-80.0) Lymphocytes (%) (Auto) 31.3 % (10.0-50.0) Monocytes (%) (Auto) 7.4 % (0.0-12.0) Eosinophils (%) (Auto) 4.0 % (0.0-7.0) Basophils (%) (Auto) 1.4 % (0.0-2.0) Neutrophils # (Auto) 4.2 10 ^3/uL (1.6-8.6) Lymphocytes # (Auto) 2.3 10 ^3/uL (0.4-5.4) Monocytes # (Auto) 0.6 10 ^3/uL (0-1.3) Eosinophils # (Auto) 0.3 10 ^3/uL (0-0.8) Basophils # (Auto) 0.1 10 ^3/uL (0-0.2) Nucleated Red Blood Cells 0.0 % Sodium Level 138 mmol/L (136-145) Potassium Level 3.8 mmol/L (3.5-5.1) Chloride Level 102 mmol/L (98-107) Carbon Dioxide Level 27 mmol/L (20-31) Anion Gap 9 (5-15) Blood Urea Nitrogen 18 mg/dL (9-23) Creatinine 0.88 mg/dL (0.550-1.02) Glomerular Filtration Rate Calc 68 mL/min (>90) BUN/Creatinine Ratio 20.5 (10.0-20.0) Serum Glucose 175 mg/dL (74-106) Hemoglobin A1c 8.6 % A1C (<5.7) Calcium Level 10.1 mg/dL (8.7-10.4) Total Bilirubin 1.7 mg/dL (0.2-1.0) Aspartate Amino Transferase (AST) 18 U/L (13-40) Alanine Aminotransferase (ALT) 15 U/L (7-40) Alkaline Phosphatase 95 U/L (46-116) Total Protein 8.6 g/dL (5.7-8.2) Albumin 4.8 g/dL (3.2-4.8) Prothrombin Time 11.0 sec (9.3-11.8) Prothrombin Time INR 1.04 (0.9-1.15) Activated Partial Thromboplast Time 26.2 SEC (24.5-34.5) Troponin I High Sensitivity 6 ng/L (</=34) Other Laboratory Tests 07/25/25 05:57 Brief Hx & Hospital Course: 75 yo female patient presents with c/o left leg swelling. Patient had a US done that showed a DVT to her left leg and was told to go to the ER. Patient is currently on Eliquis. While in the emergency department the patient was evaluated by the provider, As per provider: Labs, vital signs, and imagining monitored. Patient was admitted on July 24, 2025 due to swelling to her left lower extremity. Patient reportedly went to her dairy chemist who ordered a ultrasound venous Doppler and found she had a positive left popliteal DVT. Patient was previously discharged from facility, it was not known at the time she was on chronic anticoagulation with Eliquis. Patient states she gets it from her PCP Dr. Grimes's office and does not fill it at a pharmacy. Looking at outpatient medical record she is only on baby aspirin. Patient's anticoagulation was on hold while in the hospital due to potential placement of a nephrostomy tube. She was in the hospital for approximately 1 week. Patient was also found to have a UTI at the time. She was discharged on oral antibiotics as she stated after she left the hospital she started having swelling to her left lower extremity. I did discuss plan of care with Dr. Grimes and due to her having a DVT from not having her Eliquis she is okay to restart Eliquis at full dose 10 mg p.o. twice daily. Patient was in the hospital for 3 days and received full dose Lovenox. Patient swelling has decreased significantly to her left lower extremity. Patient will continue Eliquis 10 mg p.o. twice daily for 1 week and will continue at 5 mg p.o. twice daily indefinitely . Dr. Grimes will perform a repeat ultrasound venous Doppler to determine resolution of her DVT. She is to follow-up with Dr. Grimes in 2 to 3 days. The patient received proper medical treatment and medications. Vital signs, Imaging and Laboratory Work was monitored daily. All consults recommendations were followed as provided. There were no complaints or new complaints upon discharge, all questions and concerns were answered. Patient was advised to return to the ER or call 911 if any headaches, dizziness, shortness of breath, chest pain, bleeding, fevers, or worsening of medical condition. Patient/Family was counseled about treatment plan, medications, possible side effects, patient verbalized understanding. All questions were answered to the best of my ability. The patient symptoms improved and they are okay to be DC. Condition at Discharge: Good Final Diagnosis/Problems List DVT LLE Acute DVT to LLE Chronic anticoagulation with EliquisHyponatremia HLD essential HTN DM II & hyperglycemia Discharge Disposition: Home Discharge Instruct/Medications Diet: Consistent carbohydrate, Cardiac 2g Na,low cholest Activity: No Restrictions, As Tolerated Follow Up/Referral: Dr. Grimes 2-3 days Medications: Eliquis 10 mg 2 x a day for 7 days, then 5mg 2 x a day Scheduled Apixaban Base (Eliquis), 10 MG PO BID Atorvastatin Calcium (Atorvastatin Calcium), 1 TAB PO DAILY, (Reported) Letrozole (Femara), 1 TAB PO DAILY, (Reported) Levothyroxine Sodium (Levothyroxine Sodium), 1 TAB PO DAILY, (Reported) Lisinopril (Lisinopril), 2.5 MG PO DAILY, (Reported) Magnesium Oxide (Magnesium), 250 MG PO BID, (Reported) Metformin Hydrochloride (Metformin Hcl), 500 MG PO TID, (Reported) Multiple Vitamin (Multivitamins), 1 TAB PO DAILY, (Reported) Discontinued Medications Aspirin (Aspir-Low), 81 MG PO DAILY, (Reported) Levofloxacin Hemihydrate (Levaquin 500 Mg), 500 MG PO DAILY Discharge Statement: "Patient was advised to return to the ER or call 911 if any headaches, dizziness, shortness of breath, chest pain, abdominal pain, bleeding, fevers, or worsening of medical condition. Patient was counseled about treatment plan, medications, possible side effects, patientverbalized understanding. All questions were answered to the best of my ability. This discharge took greater then 30 minutes in planning, reviewing documentation, counseling the patient, and discussing with other team members." ASSESSMENT ASSESSMENT Assessment DVT CHANDRA ZAMBRANO NP Jul 27, 2025 18:26
== END 2025-07-27 12:32 | disposition home or self-care (01) | DRG 300 ==
LOC: ER 16:32 → OVERFLOW 19:05 → TELE-WESTW 07-25 15:42
PROVIDERS: ADMIT Nurse Practitioner; ATTEND Nurse Practitioner
DX: I82.432 Acute embolism and thrombosis of left popliteal vein (principal); E87.1 Hypo-osmolality and hyponatremia; I10 Essential (primary) hypertension; E78.00 Pure hypercholesterolemia, unspecified; E11.65 Type 2 diabetes mellitus with hyperglycemia; Z79.01 Long term (current) use of anticoagulants; Z85.3 Personal history of malignant neoplasm of breast; Z87.442 Personal history of urinary calculi; Z88.0 Allergy status to penicillin; Z88.1 Allergy status to other antibiotic agents; Z90.710 Acquired absence of both cervix and uterus; Z90.10 Acquired absence of unspecified breast and nipple; Z79.82 Long term (current) use of aspirin; Z88.8 Allergy status to other drugs, medicaments and biological substances
CPT/HCPCS: 36415; 80053; 82962; 83036; 84484; 85025; 85610; 85730; 87081; 93971; G0378; J1815; J2470

== ENCOUNTER 2025-10-03 07:52 | Emergency (ER) | payer OTHER ==
[~2025-10-03] VITALS: Ht 167.6 cm; Wt 63.1 kg
[~2025-10-03 07:52] MED LIST changes: +APIX5TAB PO; -ASPI-543 PO; -LEVO500T91 PO
--- NOTE | 2025-10-03 08:29 | ED.PDOC ---
Joseph. trauma (HPI) HPI Comments 75y F who presents to the ED for chief complaint of fall injury. Pt states she was in shower earlier this AM approx 0700, pt had slip and fall. Pt states she hit the posterior head and states she felt a large bump but denies any associated loss of consciousness and came to the ED for evaluation. Pt has noted bruising to the posterior head. Pt in the ED states she is on blood thinner in the ED. Pt otherwise any other symptoms at this time. Chief Complaint: Fall Injury Time Seen by MD: 08:40 Reviewed notes: Medications, Allergies Allergies: Coded Allergies: Erythromycin (Verified Allergy, Unknown, 08/24/20) Iodine (Verified Allergy, Unknown, 08/24/20) Lidocaine (Verified Allergy, Unknown, 08/24/20) Loracarbef (Verified Allergy, Unknown, 08/24/20) Penicillins (Verified Allergy, Unknown, 08/24/20) Sulfa Antibiotics (Verified Allergy, Unknown, 08/24/20) Home Meds Active Scripts Apixaban Base (ELIQUIS) 5 Mg Tab, 10 MG PO BID for 7 Days, TAB 10MG BID X 7 DAYS THEN 5MG PO BID FOR AT LEAST 6 MONTHS FOR DVT/PE TREATMENT Prov:TIMACHANDRA M AUTO ROLLER 07/27/25 Reported Medications Magnesium Oxide (Magnesium) 250 Mg Tab, 250 MG PO BID, TAB 02/02/18 Multiple Vitamin (Multivitamins) Tab, 1 TAB PO DAILY, #90 TAB 3 Refills 02/02/18 Lisinopril (Lisinopril) 2.5 Mg Tab, 2.5 MG PO DAILY for 30 Days, MG 02/02/18 Letrozole (Femara) 2.5 Mg Tab, 1 TAB PO DAILY, #30 TAB 11 Refills 02/02/18 Levothyroxine Sodium (Levothyroxine Sodium) 75 Mcg Tab, 1 TAB PO DAILY, #30 TAB 5 Refills 02/02/18 Atorvastatin Calcium (ATORVASTATIN CALCIUM) 10 Mg Tab, 1 TAB PO DAILY, #30 TAB 5 Refills 02/02/18 Metformin Hydrochloride (Metformin Hcl) 500 Mg Tab, 500 MG PO TID for 30 Days, MG 02/02/18 Information Source: Patient Mode of Arrival: Ambulatory Brought in by: self Severity: Moderate Timing: Hours Duration: Since onset Past Medical History PAST MEDICAL HISTORY: Cancer, High Lipids, HTN, Kidney Stones Surgical History: Hysterectomy JIGSAWYER History: No Pertinent JIGSAWYER History Family History Family History: Reviewed,noncontributory to illness, No family hx of Cancer, No family hx of DM, No family hx of Heart skye, No family hx of HTN, No family hx ofKidney skye, No family hx of Liver skye, No family hx of Lung skye, No family hx of Stroke Social History Smoker: Non-Smoker Alcohol: Denies ETOH Use Drugs: Denies Drug Use Lives In: Home Constitutional: denies: chills, diaphoresis, fatigue, fever, malaise, sweats, weakness, others EENTM: denies: blurred vision, double vision, ear bleeding, ear discharge, ear drainage, ear pain, ear ringing, eye pain, eye redness, hearing loss, mouth pain, mouth swelling, nasal discharge, nose bleeding, nose congestion, nose pain, photophobia, tearing, throat pain, throat swelling, voice changes, others Respiratory: denies: cough, hemoptysis, orthopnea, SOB at rest, shortness of breath, SOB with excertion, stridor, wheezing, others Cardiovascular: denies: chest pain, dizzy spells, diaphoresis, Dyspnea on exertion, edema, irregular heart beat, left arm pain, lightheadedness, palpitations, PND, syncope, others Gastrointestinal: denies: abdomen distended, abdominal pain, blood streaked bowels, constipated, diarrhea, dysphagia, difficulty swallowing, hematemesis, melena, nausea, poor appetite, poor fluid intake, rectal bleeding, rectal pain, vomiting, others Genitourinary: denies: abnormal vagina bleeding, burning, dyspareunia, dysuria, flank pain, frequency, hematuria, incontinence, pain, , vagina discharge, urgency, others Neurological: denies: dizziness, fainting, headache, left sided numbness, left sided weakness, numbness, paresthesia, pre-existing deficit, right sided num bness, right sided weakness, seizure, speech problems, tingling, tremors, weakness, others Musculoskeletal: denies: back pain, gout, joint pain, joint swelling, muscle pain, muscle stiffness, neck pain, others Integumetry: reports: bruises (L posterior head); denies: change in color, change in hair/nails, dryness, laceration, lesions, lumps, rash, wounds, others Allergic/Immunocompromised: denies: Difficulty Healing, Frequent Infections, Hives, Itching, others Hematologic/Lymphatic: denies: anemia, blood clots, easy bleeding, easy bruising, swollen glands, others Endocrine: denies: excessive hunger, excessive sweating, excessive thirst, excessive urination, flushing, intolerance to cold, intolerance to heat, unexplained weight gain, unexplained weight loss, others Psychiatric: denies: anxiety, bipolar disorder, depression, hopeless, panic disorder, schizophrenia, sleepless, suicidal, others All Other Systems: Reviewed and Negative Physical Exam HEENT: Head (4x4 hematoma to posterior scalp, ttp, no rhinnorhea, ) Was a procedure done? Was a procedure done?: No Differential Diagnosis Multiple Trauma: Closed Head Injury, Fractures, Spine Injury, Abrasions, Contusion, Hematoma, Encephalopathy X-Ray, Labs, Meds, VS Vital Signs Date Time Temp Pulse Resp B/P (MAP) Pulse Ox O2 Delivery O2 Flow Rate FiO2 10/03/25 07:59 97.5 76 16 145/83 99 97.5 Lab Test 10/03/25 08:42 Range/Units White Blood Count 5.1 4.4-10.8 10^3/uL Red Blood Count 5.35 H 4.0-5.20 10^6/uL Hemoglobin 15.7 12.2-16.2 g/dL Hematocrit 45.8 36.0-46.0 % Mean Corpuscular Volume 85.7 80.0-100.0 fL Mean Corpuscular Hemoglobin 29.4 28.0-32.0 pg Mean Corpuscular Hemoglobin Concent 34.3 32.0-36.0 g/dL Red Cell Distribution Width 16.0 H 11.8-14.3 % Platelet Count 283 140-450 10^3/uL Mean Platelet Volume 7.2 6.9-10.8 fL Neutrophils (%) (Auto) 64.7 37.0-80.0 % Lymphocytes (%) (Auto) 26.2 10.0-50.0 % Monocytes (%) (Auto) 5.9 0.0-12.0 % Eosinophils (%) (Auto) 1.9 0.0-7.0 % Basophils (%) (Auto) 1.3 0.0-2.0 % Neutrophils # (Auto) 3.3 1.6-8.6 10 ^3/uL Lymphocytes # (Auto) 1.3 0.4-5.4 10 ^3/uL Monocytes # (Auto) 0.3 0-1.3 10 ^3/uL Eosinophils # (Auto) 0.1 0-0.8 10 ^3/uL Basophils # (Auto) 0.1 0-0.2 10 ^3/uL Nucleated Red Blood Cells 0.0 % Prothrombin Time 10.9 9.3-11.8 sec Prothrombin Time INR 1.03 0.9-1.15 Sodium Level 139 136-145 mmol/L Potassium Level 4.1 3.5-5.1 mmol/L Chloride Level 103 98-107 mmol/L Carbon Dioxide Level 24 20-31 mmol/L Anion Gap 12 5-15 Blood Urea Nitrogen 26 H 9-23 mg/dL Creatinine 1.10 H 0.550-1.02 mg/dL Glomerular Filtration Rate Calc 52 >90 mL/min BUN/Creatinine Ratio 23.6 H 10.0-20.0 Serum Glucose 191 H 74-106 mg/dL Calcium Level 10.5 H 8.7-10.4 mg/dL [place] [address] Ph: [phone] DIAGNOSTIC IMAGING Diagnostic Imaging Report : [id number] Signed PATIENT: CORNELIO COLMENARES ACCT: [id number] UNIT: [id number] : 1950 LOC: ER ROOM / BED: / AGE / SEX: 75 / F ADM STATUS: REG ER SERVICE 7 ORDERING PHYSICIAN: NATALYA HEIN AUTO ROLLER PROCEDURE(s): CS2 - CERVICAL WITHOUT CONTRAST REASON: fall ORDER NUMBER(s): [id number], ACCESSION NUMBER(s): [id number] CLINICAL HISTORY: fall injury. COMPARISON: NECK WITHOUT CONTRAST on DOS: 08/29/20, NECK FOR SOFT TISSUE on DOS: 08/29/20 TECHNIQUE: Axial CT images of the cervical spine were obtained without IV contrast. Coronal and sagittal reformatted images were obtained. All CT scans at this medical facility are performed using dose modulation techniques as appropriate to a performed exam including the following: Automated exposure control was utilized; adjustment of the MA and/or KV according to patient size; and use of iterative reconstruction technique. CTDIvol = 18.85 mGy DLP = 466.73 mGy-cm FINDINGS: Bones: Straightening of the normal cervical lordosis. No significant spondylolisthesis. Vertebral body heights are maintained. Posterior elements are intact. No acute fracture. Paraspinal soft tissues: Prevertebral and paraspinal soft tissues are unremarkable. Other: Markedly distended left internal jugular vein, also seen on prior CT soft tissue neck exam. IMPRESSION: 1. No evidence of acute fracture or spondylolisthesis in the cervical spine. 2. Straightening of the normal cervical lordosis. 3. Degenerative disc disease and facet/ uncinate disease in the cervical spine as described above. 4. Additional nonacute findings as detailed above. ATED BY: GIORGI WARREN DO DICTATED DATE/TIME: 10/03/25904 SIGNED BY: GIORGI WARREN DO SIGNED DATE/TIME: 10/03/25904 CC: [place] [id number] Ph: [phone] DIAGNOSTIC IMAGING Diagnostic Imaging Report : [id number] Signed PATIENT: CORNELIO COLMENARES ACCT: [id number] UNIT: [id number] : 1950 LOC: ER ROOM / BED: / AGE / SEX: 75 / F ADM STATUS: REG ER SERVICE 7 ORDERING PHYSICIAN: NATALYA HEIN NP PROCEDURE(s): HWOCT - HEAD WITHOUT CONTRAST REASON: fall ORDER NUMBER(s): [id number], ACCESSION NUMBER(s): [id number] CLINICAL HISTORY: fall TECHNIQUE: Helical scanning was performed of the head from the skull base to the vertex. Multiplanar reconstructions were performed. This exam was performed according to our departmental dose optimization program. Up-to-date CT equipment and radiation dose reduction techniques are utilized as appropriate. CTDI 49 DLP 778 COMPARISON: NECK WITHOUT CONTRAST on DOS: 08/29/20, NECK FOR SOFT TISSUE on DOS: 08/29/20 FINDINGS: There is no evidence for acute intracranial hemorrhage, acute ischemic changes, mass, mass effect, or extra-axial fluid collection. There is no hydrocephalus or midline shift. There is no effacement of the cerebral sulci and basal subarachnoid cisterns. The cordero-white matter differentiation is well maintained. There is extensive right posterior scalp soft tissue swelling / hematoma formation. No underlying skull fracture seen. There has been right cataract extraction. The imaged paranasal sinuses are clear. IMPRESSION: Extensive right posterior scalp soft tissue swelling / hematoma formation. No underlying acute intracranial abnormality seen. ATED BY: MELLO POOLE MD DICTATED DATE/TIME: 10/03/25900 SIGNED BY: MELLO POOLE MD SIGNED DATE/TIME: 10/03/25900 CC: X-Ray, Labs, Meds, VS Comment Patient arrives alert and oriented, ABC's intact, afebrile, vital signs stable, saturating well in room air Peripheral IV insertion+ labs were ordered. CBC was ordered to exclude anemia, blood loss, or infection. BMP was ordered to exclude electrolyte abnormalities, renal failure, dehydration, hyperglycemia PT and INR were ordered to rule out coagulopathy. Diagnostic imaging ordered by me and results interpreted by radiology : CT HEAD W/O CONTRAST, CT CERVICAL WITHOUT CONTRAST, Labs in the ED showed (pertinent+ and then pertinent-) Patient was given:_. Tolerated medications with no adverse reaction. Additional MDM Review of External, Non-ED records: External records reviewed. Discussion with independent historian (EMS, family) history obtained from the patient/parents (if applicable) at bedside Chronic conditions affecting care: None Social determinants of health affecting care: None Consideration of admission (observation or admission): I considered escalation of care to admission for this patient, however given the reassuring workup, the patient is safe for outpatient management. Discussion with the Radiology: No Tests considered but not performed: Prescription medication considered but not given: 12 lead EKG interpretation: The following differential diagnoses were considered for this patient; subdural hematoma, subarachnoid hemorrhage, epidural hematoma, intraparenchymal bleed, herniation, skull fracture. The patient had a computed tomography of their head without any evidence of acute intracranial abnormality as per radiology. The patient is neurologically intact by exam and is able to ambulate without difficulty. A complete examination does not reveal any other related injury at this time. The patient is not currently utilizing any anticoagulants. The patient is advised to use tylenol as needed for pain. The patient is instructed to follow up their primary care physician as needed or return to ER if vomiting or worsening headache occurs. The patient was counseled in regards to the diagnosis and management of the condition and verbalized understanding of this. Time of 1ST Reevaluation: 09:10 Reevaluation 1ST: Unchanged Patient Education/Counseling: Diagnosis, Treatment Family Education/Counseling: No Family Present Departure 1 Departure Time of Disposition: 09:30 Impression: Primary Impression: Scalp hematoma Additional Impressions: Blunt head injury Fall Disposition: HOME / SELF CARE / HOMELESS Condition: Stable Discharged With: Self Critical Care Note Critical Care Time?: No Stability Stability form required: No Heart Score Heart Score: Heart Score Response (Comments) Value History N/A 0 EKG N/A 0 Age N/A 0 Risk Factors N/A 0 Troponin N/A 0 Total 0 I personally scribed for NATALYA HEIN AUTO ROLLER ([email or web address]) on 10/03/25 at 08:29. Electronically submitted by Thi Rodriguez ([email or web address]). I personally scribed for NATALYA HEIN AUTO ROLLER ([email or web address]) on 10/03/25 at 08:42. Elect ronically submitted by Thi Rodriguez ([employer]). I personally scribed for NATALYA HEIN AUTO ROLLER ([email or web address]) on 10/03/25 at 09:03. Electronically submitted by Thi Rodriguez ([employer]). I personally scribed for NATALYA HEIN AUTO ROLLER ([email or web address]) on 10/03/25 at 09:13. Electronically submitted by Thi Rodriguez ([employer]). NATALYA HEIN AUTO ROLLER Oct 03, 2025 08:29
[2025-10-03 08:59] LABS: Hematocrit 45.8 % (36.0-46.0); Hemoglobin 15.7 g/dL (12.2-16.2); Mean Corpuscular Hemoglobin 29.4 pg (28.0-32.0); Mean Corpuscular Volume 85.7 fL (80.0-100.0); Nucleated Red Blood Cells % 0.0 %
[2025-10-03 09:01] LABS: Anion Gap 12 (5-15); Carbon Dioxide 24 mmol/L (20-31); Chloride 103 mmol/L (98-107); Potassium 4.1 mmol/L (3.5-5.1); Sodium 139 mmol/L (136-145)
--- NOTE | 2025-10-03 09:03 | DVH ---
CLINICAL HISTORY: fall TECHNIQUE: Helical scanning was performed of the head from the skull base to the vertex. Multiplanar reconstructions were performed. This exam was performed according to our departmental dose optimization program. Up-to-date CT equipment and radiation dose reduction techniques are utilized as appropriate. CTDI 49 DLP 778 COMPARISON: NECK WITHOUT CONTRAST on DOS: 08/29/20, NECK FOR SOFT TISSUE on DOS: 08/29/20 FINDINGS: There is no evidence for acute intracranial hemorrhage, acute ischemic changes, mass, mass effect, or extra-axial fluid collection. There is no hydrocephalus or midline shift. There is no effacement of the cerebral sulci and basal subarachnoid cisterns. The cordero-white matter differentiation is well maintained. There is extensive right posterior scalp soft tissue swelling / hematoma formation. No underlying skull fracture seen. There has been right cataract extraction. The imaged paranasal sinuses are clear. IMPRESSION: Extensive right posterior scalp soft tissue swelling / hematoma formation. No underlying acute intracranial abnormality seen.
[2025-10-03 09:04] LABS: Calcium 10.5 mg/dL (8.7-10.4)
[2025-10-03 09:07] LABS: BUN/Creatinine Ratio 23.6 (10.0-20.0)
--- NOTE | 2025-10-03 09:07 | DVH ---
CLINICAL HISTORY: fall injury. COMPARISON: NECK WITHOUT CONTRAST on DOS: 08/29/20, NECK FOR SOFT TISSUE on DOS: 08/29/20 TECHNIQUE: Axial CT images of the cervical spine were obtained without IV contrast. Coronal and sagittal reformatted images were obtained. All CT scans at this medical facility are performed using dose modulation techniques as appropriate to a performed exam including the following: Automated exposure control was utilized; adjustment of the MA and/or KV according to patient size; and use of iterative reconstruction technique. CTDIvol = 18.85 mGy DLP = 466.73 mGy-cm FINDINGS: Bones: Straightening of the normal cervical lordosis. No significant spondylolisthesis. Vertebral body heights are maintained. Posterior elements are intact. No acute fracture. Paraspinal soft tissues: Prevertebral and paraspinal soft tissues are unremarkable. Other: Markedly distended left internal jugular vein, also seen on prior CT soft tissue neck exam. IMPRESSION: 1. No evidence of acute fracture or spondylolisthesis in the cervical spine. 2. Straightening of the normal cervical lordosis. 3. Degenerative disc disease and facet/ uncinate disease in the cervical spine as described above. 4. Additional nonacute findings as detailed above.
[2025-10-03 09:10] LABS: Blood Urea Nitrogen 26 mg/dL (9-23); Glucose 191 mg/dL (74-106)
[2025-10-03 09:19] LABS: INR 1.03 (0.9-1.15); Prothrombin Time 10.9 sec (9.3-11.8)
[2025-10-03 09:38] VITALS: BP 136/78; PULSE 74; RESP 17; TEMP 98.1; O2SAT 99
== END 2025-10-03 09:40 | disposition home or self-care (01) ==
LOC: ER 07:52
DX: S00.03XA Contusion of scalp, initial encounter (principal); I10 Essential (primary) hypertension; E78.5 Hyperlipidemia, unspecified; Z79.84 Long term (current) use of oral hypoglycemic drugs; Z79.899 Other long term (current) drug therapy; Z87.442 Personal history of urinary calculi; Z88.0 Allergy status to penicillin; Z88.1 Allergy status to other antibiotic agents; Z88.2 Allergy status to sulfonamides; Z88.8 Allergy status to other drugs, medicaments and biological substances; Z90.710 Acquired absence of both cervix and uterus; W01.0XXA Fall on same level from slipping, tripping and stumbling without subsequent striking against object, initial encounter; Y93.89 Activity, other specified; Y92.89 Other specified places as the place of occurrence of the external cause; Y99.8 Other external cause status
CPT/HCPCS: 36415; 70450; 72125; 80048; 85025; 85610